=== PATIENT | female | born 1995 | race Caucasian/White ===

== ENCOUNTER 2017-11-25 20:34 | Outpatient (CLI) | payer BC, SELFPAY ==
[2017-11-25 21:15] VITALS: BMI 29.5
[2017-11-25 21:47] LABS: Mucous, Urine 0 SEEN /hpf (<or=2+)
[2017-11-25 21:50] LABS: Color, Urine Yellow (Yellow); Glucose, Dipstick Normal (Normal); Ketone-Dipstick 5 mg/dl (Negative); Leukocyte Esterase-Dipstick 100 /ul (Negative); Nitrite-Dipstick Negative (Negative); Occult Blood-Urine 10 /ul (Negative); Protein-Dipstick Negative (Negative); Specific Gravity, Urine 1.025 (1.002-1.030); Urine Bilirubin Dipstick Negative (Negative); Urine Clarity Sl. Cloudy (Clear); Urine Urobilinogen Normal (Normal)
[2017-11-25 22:19] LABS: Bacteria 1+ /hpf (None Seen); Red Blood Cells-Urine 0-5 SEEN /hpf (0-5); Squamous Epithelial Cells - UA 10-25 SEEN /hpf (5-10); White Blood Cells 5-10 SEEN /hpf (0-5)
--- NOTE | 2017-12-01 14:44 | OB.TRI.NOTE ---
History of Present Illness Reason For Visit: BACK PAIN Gestational age: 29 History of Present Illness: co low back pain unilateral, history of kidney stones Home Medications Medication Instructions Recorded 1 tab PO QDAY 10/10/17 vitamin,calcium,saxukwqu-mifr-exswz acid tablet Allergies amoxicillin Allergy (Mild, Verified 11/25/17 21:31) Hives ibuprofen Adverse Reaction (Verified 11/25/17 21:31) Rash NST - FHR Rate Baby A Baseline: 150 Variability:: Moderate Accelerations:: 10 x 10 Decelerations:: None NST Reactive:: Yes FHR Category:: Category I Uterine Activity:: no regular Impression/Plan no UTI or signs of kidney stones, no labor, back pain likely physiologic for
== END 2017-11-25 22:35 | disposition home or self-care (01) ==
LOC: WPOUT 21:14 → WP 21:15
PROVIDERS: Family Provider Family Medicine; PCP Family Medicine; Visit Provider Obstetrics & Gynecology
DX: Z34.91 Encounter for supervision of normal pregnancy, unspecified, first trimester (principal); Z3A.00 Weeks of gestation of pregnancy not specified
CPT/HCPCS: 59025; 59050; 81001; 87086; 87088; 99218; G0378

== ENCOUNTER → 2017-12-06 11:31 | Outpatient (CLI) | payer BC, SELFPAY ==
[2017-12-05 11:31] VITALS: BP 121/70; BMI 28.4
[2017-12-06 12:03] LABS: Absolute Lymphocyte Count 1.92 X10^3/ul (0.83-4.51); Absolute Neutrophil Count 7.7 X10^3/uL (2.0-7.7); Basophil# 0.01 X10^3/uL; Basophil% 0.1 % (0-1); Eosinophil# 0.07 X10^3/uL; Eosinophils% 0.7 % (0-5); Hematocrit 35.5 % (37-47); Hemoglobin 12.1 g/dl (12.0-15.0); Lymphocyte # 1.92 X10^3/ul (4.0); Lymphocyte % 18.8 % (19-41); Mean Corp Hgb Conc 34.1 g/gl (32-36); Mean Corpuscular Hgb 29.2 pg (27.0-32.0); Mean Corpuscular Volume 85.5 fL (81-99); Mean Platelet Vol. 9.7 fl (6.2-12.0); Monocyte# 0.44 X10^3/uL; Monocyte% 4.3 % (0-10); Neutrophil # 7.73 X10^3/uL (2.7-7.7); Neutrophil % 75.6 % (47-70); Platelet Count 263 K/mm3 (150-450); RBC Distribution Width CV 13.4 % (11.6-14.6); Red Blood Count 4.15 M/mm3 (4.2-5.4); White Blood Count 10.2 K/mm3 (4.4-11.0)
[2017-12-06 12:04] LABS: POSITIVE COUNT NO; POSITIVE DIFFERENTIAL NO; POSITIVE MORPHOLOGY NO
[2017-12-06 12:09] LABS: Glucose Challenge Gest 1H 50g 137 mg/dL (70-140)
== END ==
PROVIDERS: Family Provider Family Medicine; PCP Family Medicine; Visit Provider Obstetrics & Gynecology
DX: Z34.90 Encounter for supervision of normal pregnancy, unspecified, unspecified trimester (principal)
CPT/HCPCS: 36415; 82950; 85025

== ENCOUNTER → 2018-01-07 15:01 | Outpatient (CLI) | payer BC, SELFPAY ==
--- NOTE | 2018-01-07 15:03 | US_ITS ---
STUDY: SECOND AND THIRD TRIMESTER OBSTETRICAL ULTRASOUND - LIMITED REASON FOR EXAM: Female, 22 years old. Follow-up focal placental separation. LMP: 05/29/17 PRIOR ULTRASOUND: 10/18/17, 11/05/2017. TECHNIQUE: Transabdominal ultrasound evaluation was performed. FINDINGS: There is a single intrauterine fetus. The fetus is in a cephalic presentation. There is demonstrated cardiac activity with a heart rate of 147 bpm. There is a normal amniotic fluid volume. The largest amniotic fluid pocket measures 4.3 cm. The amniotic fluid index (NASRIN) is 14.3 cm. The placenta is anterior in location and is not low lying. Stable 3.8 cm area of focal placental separation. There are Grade 2 placental changes. The cervix measures 3.2 cm in length. BIOMETRY: BPD: 8.1: 32 weeks, 5 days HC: 29.4: 32 weeks, 4 days AC: 29.1: 33 weeks, 1 days FL: 6.0: 31 weeks, 3 days Age by LMP: 31 weeks, 6 days. RAFITA by LMP: 03/05/2018. age by prior US: weeks, days. RAFITA by prior US: . age by current US: 32 weeks, 4 days. RAFITA by current US: 02/28/2018. Estimated weight: 1990 grams, +/- 291 grams, 61 percentile. Gender: US/OB Limited With Biometrics IMPRESSION: Single live fetus in a vertex presentation. survey not performed on this exam. Placenta is grade 2 and is not low-lying. Stable 3.8 cm area of focal placental separation. Cervix is closed. age by current US: 32 weeks, 4 days. RAFITA by current US: 02/28/2018. Estimated weight: 1990 grams, +/- 291 grams, 61 percentile. Electronically Signed: Lui Puentes MD at 10:20 EDT , Service support ,
--- NOTE | 2018-01-17 13:30 | US_ITS ---
STUDY: SECOND AND THIRD TRIMESTER OBSTETRICAL ULTRASOUND REASON FOR EXAM: Female, 22 years old. Follow-up stomach and heart LMP: 05/29/2017 TECHNIQUE: Transabdominal PRIOR ULTRASOUND: 01/07/2018 FINDINGS: There is a single intrauterine fetus. The fetus is in a cephalic presentation. There is demonstrated cardiac activity with a heart rate of 138 bpm. There is a normal amniotic fluid volume. The placenta is anterior in location and is not low lying. Previously reported focal placental separation not imaged. There are Grade 2 placental changes. ANATOMY: Chest: Normal 4-chamber heart. Abdomen/Pelvis: Normal stomach. US/OB Limited (No Biometrics) IMPRESSION: Single live intrauterine in vertex presentation. Normal four-chamber cardiac anatomy and stomach detected. Electronically Signed: Gini Blanco MD at 8:08 EDT , Service support ,
== END ==
PROVIDERS: Family Provider Family Medicine; PCP Family Medicine; Visit Provider Obstetrics & Gynecology
DX: O45.92 Premature separation of placenta, unspecified, second trimester (principal); Z3A.00 Weeks of gestation of pregnancy not specified
CPT/HCPCS: 76816

== ENCOUNTER 2018-01-11 23:30 | Outpatient (CLI) | payer BC, SELFPAY ==
[2018-01-11 23:55] VITALS: BMI 31.7
[2018-01-12 00:12] LABS: Mucous, Urine 0 SEEN /hpf (<or=2+); Red Blood Cells-Urine 0 SEEN /hpf (0-5)
[2018-01-12 00:16] LABS: Absolute Lymphocyte Count 2.81 X10^3/ul (0.83-4.51); Absolute Neutrophil Count 9.3 X10^3/uL (2.0-7.7); Basophil# 0.01 X10^3/uL; Basophil% 0.1 % (0-1); Eosinophil# 0.12 X10^3/uL; Eosinophils% 0.9 % (0-5); Hematocrit 34.9 % (37-47); Hemoglobin 12.3 g/dl (12.0-15.0); Lymphocyte # 2.81 X10^3/ul (4.0); Lymphocyte % 21.7 % (19-41); Mean Corp Hgb Conc 35.2 g/gl (32-36); Mean Corpuscular Hgb 29.6 pg (27.0-32.0); Mean Corpuscular Volume 84.1 fL (81-99); Mean Platelet Vol. 10.8 fl (6.2-12.0); Monocyte# 0.65 X10^3/uL; Neutrophil # 9.25 X10^3/uL (2.7-7.7); Neutrophil % 71.6 % (47-70); Platelet Count 230 K/mm3 (150-450); RBC Distribution Width CV 13.1 % (11.6-14.6); RBC Distribution Width SD 39.9 fl (35.1-43.9); Red Blood Count 4.15 M/mm3 (4.2-5.4); White Blood Count 12.9 K/mm3 (4.4-11.0)
[2018-01-12 00:17] LABS: POSITIVE COUNT NO; POSITIVE DIFFERENTIAL NO; POSITIVE MORPHOLOGY NO
[2018-01-12 00:22] LABS: Color, Urine Yellow (Yellow); Glucose, Dipstick Normal (Normal); Ketone-Dipstick Negative (Negative); Leukocyte Esterase-Dipstick 100 /ul (Negative); Nitrite-Dipstick Negative (Negative); Occult Blood-Urine 10 /ul (Negative); Protein-Dipstick 30 mg/dl (Negative); Specific Gravity, Urine 1.015 (1.002-1.030); Urine Bilirubin Dipstick Negative (Negative); Urine Clarity Sl. Cloudy (Clear); Urine Urobilinogen Normal (Normal)
[2018-01-12 00:25] LABS: Fibrinogen 434 mg/dl (203-444)
[2018-01-12 00:34] LABS: Bacteria 1+ /hpf (None Seen); Squamous Epithelial Cells - UA 5-10 SEEN /hpf (5-10)
[2018-01-12 00:35] LABS: White Blood Cells 5-10 SEEN /hpf (0-5)
[2018-01-12 00:42] LABS: ROM Internal Control Test YES-OK TO RESULT pt. (Internal QC); ROM Patient Test Negative (Negative)
--- NOTE | 2018-01-12 06:45 | OB.TRI.NOTE ---
History of Present Illness Date of Service: 01/11/18 Was patient seen by the physician?: No Reason For Visit: R/O LABOR Date of Service: 01/11/18 Gestational age: 32w4d History of Present Illness: 32w4d with back pain and cramping no vb Home Medications Medication Instructions Recorded 1 tab PO QDAY 10/10/17 vitamin,calcium,gcldwjzq-nqjc-uueiv acid tablet nitrofurantoin 1 cap PO Q12H 7 Days #14 cap 01/12/18 monohydrate/macrocrystals 100 mg capsule Allergies amoxicillin Allergy (Mild, Verified 01/11/18 23:53) Hives ibuprofen Adverse Reaction (Verified 01/11/18 23:53) Rash NST - FHR Rate Baby A Baseline: 130 Variability:: Moderate Accelerations:: 15 x 15 Decelerations:: None NST Reactive:: Yes FHR Category:: Category I Uterine Activity:: no regular Impression/Plan cervix not dilated, reassruing FHTs, cbc and fibrinogen within normal limits. ua- give macrobid for possible uti and send culture. dc home labor precautions
== END 2018-01-12 01:00 | disposition home or self-care (01) ==
LOC: WPOUT 23:33 → WP 23:34
PROVIDERS: Family Provider Family Medicine; PCP Family Medicine; Visit Provider Obstetrics & Gynecology
DX: O26.893 Other specified pregnancy related conditions, third trimester (principal); M54.9 Dorsalgia, unspecified; R25.2 Cramp and spasm; Z3A.32 32 weeks gestation of pregnancy
CPT/HCPCS: 36415; 59025; 59050; 81001; 84112; 85025; 85384; 86850; 86900; 87086; 87088; 99218; G0378

== ENCOUNTER → 2018-01-15 12:34 | Outpatient (CLI) | payer BC, SELFPAY ==
[2018-01-15 13:49] LABS: Absolute Lymphocyte Count 2.01 X10^3/ul (0.83-4.51); Absolute Neutrophil Count 7.8 X10^3/uL (2.0-7.7); Basophil# 0.01 X10^3/uL; Basophil% 0.1 % (0-1); Eosinophil# 0.05 X10^3/uL; Eosinophils% 0.5 % (0-5); Hematocrit 35.6 % (37-47); Hemoglobin 11.9 g/dl (12.0-15.0); Lymphocyte # 2.01 X10^3/ul (4.0); Lymphocyte % 19.1 % (19-41); Mean Corp Hgb Conc 33.4 g/gl (32-36); Mean Corpuscular Hgb 28.5 pg (27.0-32.0); Mean Corpuscular Volume 85.2 fL (81-99); Mean Platelet Vol. 10.8 fl (6.2-12.0); Monocyte# 0.62 X10^3/uL; Monocyte% 5.9 % (0-10); Neutrophil # 7.81 X10^3/uL (2.7-7.7); Neutrophil % 73.9 % (47-70); Platelet Count 194 K/mm3 (150-450); RBC Distribution Width CV 13.5 % (11.6-14.6); RBC Distribution Width SD 41.6 fl (35.1-43.9); Red Blood Count 4.18 M/mm3 (4.2-5.4); White Blood Count 10.6 K/mm3 (4.4-11.0)
[2018-01-15 13:52] LABS: POSITIVE COUNT NO; POSITIVE DIFFERENTIAL NO; POSITIVE MORPHOLOGY NO
[2018-01-15 14:46] LABS: ALB/GLOB Ratio 0.6 RATIO (0.9-2.4); AST(SGOT) 17 U/L (15-37); Alanine Aminotransfer ALT/SGPT 23 U/L (13-56); Albumin, Serum 2.6 g/dL (3.2-5.0); Alkaline Phosphatase 153 U/L (45-117); Anion Gap 8 (5-15); BUN 14 mg/dL (7-18); BUN/Creat Ratio 26.8 RATIO (10-20); Calcium,Total 8.6 mg/dL (8.5-10.1); Chloride 108 mmol/L (98-107); Creatinine, Serum 0.52 mg/dL (0.55-1.02); EST Glomerular Filtration Rate 157 mL/min (>60); Est Glom Filt Rate - Afr Amer 189 mL/min (>60); Glucose 99 mg/dL (74-106); LDH 186 U/L (84-246); Potassium 3.8 mmol/L (3.5-5.1); Protein, Total 6.6 g/dL (6.4-8.2); Sodium Level 139 mmol/L (136-145); Uric Acid 5.8 mg/dL (2.6-6.0)
== END ==
PROVIDERS: Nurse Practitioner Women's Health; Family Provider Family Medicine; PCP Family Medicine; Visit Provider Obstetrics & Gynecology
DX: O45.92 Premature separation of placenta, unspecified, second trimester (principal); O12.10 Gestational proteinuria, unspecified trimester; Z3A.00 Weeks of gestation of pregnancy not specified
CPT/HCPCS: 36415; 80053; 83615; 84550; 85025

== ENCOUNTER → 2018-01-15 15:06 | Outpatient (CLI) | payer BC, SELFPAY ==
[2018-01-15 15:30] LABS: Protein, Urine (Random) 100.9 mg/dL (<11.9); Protein:Creat Ratio 542 mg/g CRE (0-200)
== END ==
PROVIDERS: Family Provider Family Medicine; PCP Family Medicine; Visit Provider Nurse Practitioner Women's Health
DX: O45.92 Premature separation of placenta, unspecified, second trimester (principal); O12.10 Gestational proteinuria, unspecified trimester; Z3A.00 Weeks of gestation of pregnancy not specified
CPT/HCPCS: 82570; 84156

== ENCOUNTER 2018-01-20 14:45 | Outpatient (CLI) | payer BC, SELFPAY ==
[2018-01-20 15:04] VITALS: BMI 32.2
[2018-01-20 15:43] LABS: Hematocrit 35.6 % (37-47); Hemoglobin 12.2 g/dl (12.0-15.0); Mean Corp Hgb Conc 34.3 g/gl (32-36); Mean Corpuscular Hgb 28.9 pg (27.0-32.0); Mean Corpuscular Volume 84.4 fL (81-99); Platelet Count 196 K/mm3 (150-450); RBC Distribution Width CV 13.5 % (11.6-14.6); RBC Distribution Width SD 41.1 fl (35.1-43.9); Red Blood Count 4.22 M/mm3 (4.2-5.4)
[2018-01-20 15:45] LABS: Protein, Urine (Random) 132.3 mg/dL (<11.9); Protein:Creat Ratio 1026 mg/g CRE (0-200)
[2018-01-20 15:49] LABS: International Normalized Ratio 0.9; Prothrombin Time (Protime)PT. 11.7 SECONDS (11.7-14.9)
[2018-01-20 15:50] LABS: Partial Thromboplast Time 24.2 Seconds (24.1-36.2)
[2018-01-20 15:54] LABS: AST(SGOT) 16 U/L (15-37); Alanine Aminotransfer ALT/SGPT 19 U/L (13-56); Creatinine, Serum 0.48 mg/dL (0.55-1.02); EST Glomerular Filtration Rate 171 mL/min (>60); Est Glom Filt Rate - Afr Amer 207 mL/min (>60); Estimated Creatinine Clearance 180.29 ml/min; Uric Acid 4.9 mg/dL (2.6-6.0)
[2018-01-20 16:01] LABS: Scan Indicated on CBC? Y/N NO
[2018-01-20] MEDS: Betamethasone/Betamethasone 30 MG/5 ML Vial 12 MG IM (16:15)
--- NOTE | 2018-01-21 01:59 | PCM.HP.OB ---
- Problem List (1) Preeclampsia Status: Acute History Date of Admission: 01/20/18 Final RAFITA: 03/05/18 Gestational age: 33 Weeks and 6 Days History of this : 22 yo @ 33w5d presents with new onset preeclampsia with mild features. she has had intermittent headache but none now, denies any vaginal bleeding or LOF and has good fm. bps are mildly elevated and labs show 1000mg of protein in the urine and otherwise normal [id number] Pertinent Past Medical History: Medical History History of IBS (Acute) Surgical History History of wisdom tooth extraction (Acute) Social History Smoking Status: Never smoker alcohol intake: never substance use type: does not use caffeine: Yes what type of physical activity do you participate in: walking frequency: 5-6 times per week seatbelt use: always do you feel safe at home: Yes additional social history: Boyfriend- Lane Patient works at [employer] Pregancy History 1 Elective abortions Hx Para Spontaneous abortions Hx # Term Pregnancies Ectopic pregnancies Hx # Pregnancies Multiple births # of living children Allergies amoxicillin Allergy (Mild, Verified 01/15/18 12:11) Hives ibuprofen Adverse Reaction (Verified 01/15/18 12:11) Rash Smoking Status: Never smoker Alcohol: None Drug Use: none Number of Fetus(es): 1 Review of Systems Constitutional: Denies: Chills, Fever, Weight Change HEENT: Denies: Head Aches, Sinus Congestion, Sinus Drainage Cardiovascular: Denies: Chest Pain, Palpitations Respiratory: Denies: Cough, Shortness of breath at rest, Sputum production Gastrointestinal: Denies: Abdominal Pain, Nausea, Vomiting Genitourinary: Denies: Dysuria Musculoskeletal: Denies: Joint Pain, Joint Tenderness Skin: Denies: Rash, Wounds Physical Exam General: Alert, Oriented x3, No apparent distress Cardiovascular: Regular rate Lungs: Normal air movement Abdomen: Soft, Non Tender, Gravid Extremities:: No edema Estimated gestational size: Appropriate for gestational size Presentation: Cephalic Assessment/Plan Active and Suspected Problems (Last Reviewed 01/15/18 @ 12:11 by Keren Strong) Preeclampsia (Acute) 22 yo @ 33w5d presents with preeclampsia with mild features- 1. preeclampsia- STO for monitoring bps and recommend BMZ for FLM 2. prematuirty- BMZ
--- NOTE | 2018-01-21 02:04 | HP.PCM_ITS ---
- Problem List (1) Preeclampsia Status: Acute History Date of Admission: 01/20/18 Final RAFITA: 03/05/18 Gestational age: 33 Weeks and 6 Days History of this : 22 yo @ 33w5d presents with new onset preeclampsia with mild features. she has had intermittent headache but none now, denies any vaginal bleeding or LOF and has good fm. bps are mildly elevated and labs show 1000mg of protein in the urine and otherwise normal [id number] Pertinent Past Medical History: Medical History History of IBS (Acute) Surgical History History of wisdom tooth extraction (Acute) Social History Smoking Status: Never smoker alcohol intake: never substance use type: does not use caffeine: Yes what type of physical activity do you participate in: walking frequency: 5-6 times per week seatbelt use: always do you feel safe at home: Yes additional social history: Boyfriend- Lane Patient works at [employer] Pregancy History 1 Elective abortions Hx Para Spontaneous abortions Hx # Term Pregnancies Ectopic pregnancies Hx # Pregnancies Multiple births # of living children Allergies amoxicillin Allergy (Mild, Verified 01/15/18 12:11) Hives ibuprofen Adverse Reaction (Verified 01/15/18 12:11) Rash Smoking Status: Never smoker Alcohol: None Drug Use: none Number of Fetus(es): 1 Review of Systems Constitutional: Denies: Chills, Fever, Weight Change HEENT: Denies: Head Aches, Sinus Congestion, Sinus Drainage Cardiovascular: Denies: Chest Pain, Palpitations Respiratory: Denies: Cough, Shortness of breath at rest, Sputum production Gastrointestinal: Denies: Abdominal Pain, Nausea, Vomiting Genitourinary: Denies: Dysuria Musculoskeletal: Denies: Joint Pain, Joint Tenderness Skin: Denies: Rash, Wounds Physical Exam General: Alert, Oriented x3, No apparent distress Cardiovascular: Regular rate Lungs: Normal air movement Abdomen: Soft, Non Tender, Gravid Extremities:: No edema Estimated gestational size: Appropriate for gestational size Presentation: Cephalic Assessment/Plan Active and Suspected Problems (Last Reviewed 01/15/18 @ 12:11 by Keren Strong) Preeclampsia (Acute) 22 yo @ 33w5d presents with preeclampsia with mild features- 1. preeclampsia- STO for monitoring bps and recommend BMZ for FLM 2. prematuirty- BMZ
[2018-01-21 08:14] LABS: Hematocrit 35.5 % (37-47); Mean Corp Hgb Conc 33.8 g/gl (32-36); Mean Corpuscular Hgb 28.7 pg (27.0-32.0); Mean Corpuscular Volume 84.9 fL (81-99); Mean Platelet Vol. 10.7 fl (6.2-12.0); Platelet Count 186 K/mm3 (150-450); RBC Distribution Width CV 13.6 % (11.6-14.6); RBC Distribution Width SD 41.9 fl (35.1-43.9); Red Blood Count 4.18 M/mm3 (4.2-5.4); White Blood Count 19.6 K/mm3 (4.4-11.0)
[2018-01-21 08:15] LABS: Scan Indicated on CBC? Y/N NO
[2018-01-21] MEDS: Acetaminophen 500 MG Tablet 1000 MG PO (08:21)
[2018-01-21 08:23] LABS: International Normalized Ratio 0.9; Partial Thromboplast Time 23.3 Seconds (24.1-36.2); Prothrombin Time (Protime)PT. 12.2 SECONDS (11.7-14.9)
[2018-01-21 08:26] LABS: AST(SGOT) 19 U/L (15-37); Alanine Aminotransfer ALT/SGPT 21 U/L (13-56); Creatinine, Serum 0.58 mg/dL (0.55-1.02); EST Glomerular Filtration Rate 138 mL/min (>60); Est Glom Filt Rate - Afr Amer 167 mL/min (>60); Estimated Creatinine Clearance 149.21 ml/min; Uric Acid 5.2 mg/dL (2.6-6.0)
[2018-01-21] MEDS: Betamethasone/Betamethasone 30 MG/5 ML Vial 12 MG IM (16:29)
== END 2018-01-21 16:50 | disposition home or self-care (01) ==
LOC: WPOUT 14:54 → WP 14:55
PROVIDERS: Family Provider Family Medicine; PCP Family Medicine; Visit Provider Obstetrics & Gynecology
DX: O14.93 Unspecified pre-eclampsia, third trimester (principal); Z3A.33 33 weeks gestation of pregnancy
CPT/HCPCS: 36415; 59025; 59050; 82565; 82570; 84156; 84450; 84460; 84550; 85027; 85610; 85730; 99218; G0378; J0702

== ENCOUNTER 2018-01-24 18:10 | Inpatient (IN) | payer BC, SELFPAY ==
[2018-01-24 14:30] VITALS: BMI 32.8
[2018-01-24 15:06] LABS: Hematocrit 34.5 % (37-47); Hemoglobin 11.7 g/dl (12.0-15.0); Mean Corp Hgb Conc 33.9 g/gl (32-36); Mean Corpuscular Hgb 28.8 pg (27.0-32.0); Mean Platelet Vol. 10.7 fl (6.2-12.0); Platelet Count 195 K/mm3 (150-450); RBC Distribution Width CV 13.6 % (11.6-14.6); RBC Distribution Width SD 42.1 fl (35.1-43.9); Red Blood Count 4.06 M/mm3 (4.2-5.4); Scan Indicated on CBC? Y/N NO; White Blood Count 17.3 K/mm3 (4.4-11.0)
[2018-01-24 15:07] LABS: International Normalized Ratio 0.9; Prothrombin Time (Protime)PT. 11.8 SECONDS (11.7-14.9)
[2018-01-24 15:08] LABS: Partial Thromboplast Time 22.4 Seconds (24.1-36.2)
[2018-01-24 15:49] LABS: AST(SGOT) 17 U/L (15-37); Alanine Aminotransfer ALT/SGPT 21 U/L (13-56); Creatinine, Serum 0.76 mg/dL (0.55-1.02); EST Glomerular Filtration Rate 102 mL/min (>60); Est Glom Filt Rate - Afr Amer 123 mL/min (>60); Estimated Creatinine Clearance 113.87 ml/min; Uric Acid 6.2 mg/dL (2.6-6.0)
[2018-01-24 16:48] LABS: Protein:Creat Ratio 1504 mg/g CRE (0-200)
[2018-01-24] MEDS: Labetalol 100 MG Tablet PO ×2 (17:06→20:01)
[2018-01-24] MEDS: Sodium Citrate/Citric Acid 30 ML UDC PO (17:06)
[2018-01-24] MEDS: Acetaminophen 500 MG Tablet 1000 MG PO (17:06)
--- NOTE | 2018-01-24 18:16 | PCM.HP.OB ---
- Problem List (1) Severe preeclampsia Status: Acute (2) Supervision of high risk in third trimester Status: Acute Comment: PRR RAFITA 03/05/18 girl- [place] boyfriend [address] scanlon History Date of Admission: 01/24/18 Final RAFITA: 03/05/18 Gestational age: 34 Weeks and 2 Days History of this : 22 yo @ 34w2d presents with preeclampsia with severe features- co headache and heartburn, bps elevated in the 160-180s for the last few hours. she dneies any vaginal bleeding or LOF. urine protein increased from 1095 to 1500 and her uric acid is elevated. Pertinent Past Medical History: IBS SPH: wisdom tooth extraction Allergies amoxicillin Allergy (Mild, Verified 01/24/18 13:58) Hives ibuprofen Adverse Reaction (Verified 01/24/18 13:58) Rash Current Medications Labetalol HCl (Trandate) 100 mg PO BID DES Last Admin: 01/24/18 17:06 Dose: 100 mg Smoking Status: Never smoker Alcohol: None Drug Use: none Number of Fetus(es): 1 - fht 140s moderate variability reactive no decels Review of Systems Constitutional: Denies: Chills, Fever, Weight Change HEENT: Reports: Head Aches. Denies: Sinus Congestion, Sinus Drainage Cardiovascular: Denies: Chest Pain, Palpitations Respiratory: Denies: Cough, Shortness of breath at rest, Sputum production Gastrointestinal: Reports: Abdominal Pain, Nausea. Denies: Vomiting Genitourinary: Denies: Dysuria Gynecological: Denies: Vaginal bleeding, Vaginal discharge Musculoskeletal: Denies: Joint Pain, Joint Tenderness Skin: Denies: Rash, Wounds Neurological: Denies: Numbness, Tingling, Focal weakness Psychiatric: Denies: Anxiety, Depression Hematologic/ Lymphatic: Denies: Easy Bruising, Easy Bleeding Physical Exam General: Alert, Oriented x3, No apparent distress Cardiovascular: Regular rate Lungs: Normal air movement Abdomen: Soft, Non Tender, Gravid Extremities:: Other - 2+ edema Estimated gestational size: Appropriate for gestational size Presentation: Cephalic Cervix Dilation (cm): 1.5 Station: -1 Effacement (%): 50 Assessment/Plan Active and Suspected Problems (Last Reviewed 01/24/18 @ 13:57 by Linda Adan) Severe preeclampsia (Acute) 22 yo @ 34w2d presents with preeclampsia with severe features plan pit and FB IOL severe preeclampsia- magnesium seizure prophylaxis and start hypertensive protocol
[2018-01-24] MEDS: Lactated Ringers 1,000 ML 50 ML IV (19:15)
[2018-01-24] MEDS: Magnesium Sulfate 20 GM/500 ML BAG IV (20:05)
[2018-01-24 21:57] LABS: Hematocrit 34.9 % (37-47); Hemoglobin 11.9 g/dl (12.0-15.0); Mean Corp Hgb Conc 34.1 g/gl (32-36); Mean Corpuscular Hgb 28.7 pg (27.0-32.0); Mean Corpuscular Volume 84.1 fL (81-99); Mean Platelet Vol. 10.7 fl (6.2-12.0); Platelet Count 198 K/mm3 (150-450); RBC Distribution Width CV 13.7 % (11.6-14.6); RBC Distribution Width SD 41.8 fl (35.1-43.9); Red Blood Count 4.15 M/mm3 (4.2-5.4); Scan Indicated on CBC? Y/N NO; White Blood Count 17.5 K/mm3 (4.4-11.0)
[2018-01-24] MEDS: Oxytocin 30 units/NS 500 ml 30 UNITS/500 ML IV.SOLN IV (22:39)
[2018-01-25] VITALS (7 sets, daily range): BP systolic 111–142; BP diastolic 68–90; PULSE 73–88; RESP 15–18; TEMP 36.3–37.1; O2SAT 96–98
[2018-01-25] MEDS: Magnesium Sulfate 20 GM/500 ML BAG IV ×2 (06:01→21:11)
[2018-01-25] MEDS: Labetalol 200 MG Tablet PO (06:47)
--- NOTE | 2018-01-25 07:45 | PN_ITS ---
Progress Note fht 120-130 moderate variability reactive no decels [place] q2-3 5 cm dilated arom clear fluid, bps well controlled. continue to monitor
[2018-01-25] MEDS: Acetaminophen 325 MG Tablet PO (07:49)
[2018-01-25] MEDS: Ondansetron 4 MG/2 ML Vial IV (09:31)
[2018-01-25] MEDS: fentaNYL-bupivacaine (epidural) 100 ML BAG EPIDURAL (11:24)
[2018-01-25] MEDS: Oxytocin 30 units/NS 500 ml 30 UNITS/500 ML IV.SOLN 334 UNITS IV (13:28)
--- NOTE | 2018-01-25 13:50 | PCM.OB.VAG ---
- Problem List (1) Severe preeclampsia Status: Acute (2) Supervision of high risk in third trimester Status: Acute Comment: PRR RAFITA 03/05/18 girl- [place] boyfriend Lane FOB ghislaine Vaginal Delivery Maternal Presentation: Medically Indicated Induction 22-year-old at 34 weeks 2 days presents for induction of labor secondary to severe preeclampsia Medical Reason for Induction: Preeclampsia, eclampsia Amniotic Membrane Rupture Type: Artificial Amniotic Fluid Description: Clear Final RAFITA: 03/05/18 Gestational age: 34 Weeks and 3 Days Date of Procedure: 01/25/18 Pre-Operative Diagnosis: Induction of labor secondary to severe preeclampsia Post-Operative Diagnosis: Same Surgery/ Procedure Performed: Spontaneous Vaginal Delivery Type of Anesthesia: Epidural, Pudendal block with 1% lidocaine Description of Procedure: Patient received an epidural but it was found to be inadequate and therefore she requested a pudendal block. After Betadine prepping bilateral ischial spines were identified and 10 cc of 1% lidocaine were injected 2 cm medial and posterior to the initial spine into the sacrospinous ligament around the pudendal nerves without complication. Patient began pushing and delivered the head in the HECTOR presentation. The head was delivered atraumatically . The anterior and posterior shoulders delivered without complication followed by the rest of the and the was placed on the maternal abdomen. Delayed cord clamping was employed for approximately 60 seconds. Cord was clamped and cut and gentle traction was applied to the cord and the placenta delivered spontaneously immediately following it was noted to be intact with three-vessel cord. The perineum and vagina were inspected and noted to have no laceration. EBL was 100 cc. Patient and tolerated delivery well. Presentation: HECTOR Placental Delivery Description: Spontaneous Placenta Disposition: [facility] Cord Vessel Description: 3 Vessels Cord Gases drawn per routine: ABG, VBG Cord Entanglement: None Estimated Blood Loss: 100 Episiotomy Description: None Laceration: None Medications given after delivery: IV Pitocin Complications: None
[2018-01-25] MEDS: Oxytocin 30 units/NS 500 ml 30 UNITS/500 ML IV.SOLN 167 UNITS IV (13:58)
[2018-01-26] VITALS (19 sets, daily range): BP systolic 105–146; BP diastolic 54–85; PULSE 63–84; RESP 14–17; TEMP 36.3–37.1; O2SAT 96–99
[2018-01-26 06:01] LABS: Hematocrit 35.5 % (37-47); Mean Corp Hgb Conc 33.8 g/gl (32-36); Mean Corpuscular Hgb 29.1 pg (27.0-32.0); Mean Corpuscular Volume 86.2 fL (81-99); Mean Platelet Vol. 10.7 fl (6.2-12.0); Platelet Count 176 K/mm3 (150-450); Red Blood Count 4.12 M/mm3 (4.2-5.4); White Blood Count 17.3 K/mm3 (4.4-11.0)
[2018-01-26 06:03] LABS: Scan Indicated on CBC? Y/N NO
[2018-01-26 08:18] LABS: ALB/GLOB Ratio 0.6 RATIO (0.9-2.4); AST(SGOT) 20 U/L (15-37); Alanine Aminotransfer ALT/SGPT 16 U/L (13-56); Albumin, Serum 2.3 g/dL (3.2-5.0); Alkaline Phosphatase 143 U/L (45-117); Anion Gap 8 (5-15); BUN 22 mg/dL (7-18); BUN/Creat Ratio 28.9 RATIO (10-20); Calcium,Total 6.6 mg/dL (8.5-10.1); Chloride 106 mmol/L (98-107); Creatinine, Serum 0.76 mg/dL (0.55-1.02); EST Glomerular Filtration Rate 102 mL/min (>60); Est Glom Filt Rate - Afr Amer 123 mL/min (>60); Estimated Creatinine Clearance 113.87 ml/min; Globulin 3.9 g/dL (2.2-4.2); Glucose 155 mg/dL (74-106); Potassium 4.5 mmol/L (3.5-5.1); Protein, Total 6.2 g/dL (6.4-8.2); Sodium Level 137 mmol/L (136-145)
[2018-01-26] MEDS: Acetaminophen 500 MG Tablet 1000 MG PO (08:57)
[2018-01-26] MEDS: Prenatal Vits Tablet 1 TABLET PO (13:25)
[2018-01-26] MEDS: 0.9% Saline Lock 10 ML Syringe IV (13:25)
--- NOTE | 2018-01-26 17:41 | PCM.PN.OB ---
Patient Problems: Active and Suspected Problems (Last Reviewed 01/24/18 @ 13:57 by Linda Adan) Severe preeclampsia (Acute) Subjective: no cp sob diuresing well, pain controlled, no BRAVO BV - Physical Exam General: Alert, Oriented x3 Vital Signs Temp Pulse Resp BP Pulse Ox 97.7 F L 77 14 136/67 H 97 01/26/18 16:30 01/26/18 16:30 01/26/18 16:30 01/26/18 16:30 01/26/18 16:30 Oxygen Delivery Method Room Air Weight: 209 lb 12.8 oz Body Mass Index (BMI) 32.8 Intake and Output for Last 24 Hours 01/24/18 01/25/18 01/26/18 23:59 23:59 23:59 Intake Total 100 / 100 650 / 650 1609 / 1609 Output Total 1700 / 1700 4000 / 4000 Balance 100 / 100 -1050 / -1050 -2391 / -2391 Laboratory Tests Past 24 Hrs 01/26/18 01/26/18 05:30 05:30 WBC 17.3 H RBC 4.12 L Hgb 12.0 Hct 35.5 L MCV 86.2 MCH 29.1 MCHC 33.8 RDW 14.0 RDW Differential 43.0 Plt Count 176 MPV 10.7 Sodium 137 Potassium 4.5 Chloride 106 Carbon Dioxide 23.0 Anion Gap 8 BUN 22 H Creatinine 0.76 Estim Creat Clear Calc 113.87 Est GFR (MDRD) Af Amer 123 Est GFR (MDRD) Non-Af 102 BUN/Creatinine Ratio 28.9 H Glucose 155 H Calcium 6.6 L Total Bilirubin 0.50 AST 20 ALT 16 Alkaline Phosphatase 143 H Total Protein 6.2 L Albumin 2.3 L Globulin 3.9 Albumin/Globulin Ratio 0.6 L Medical Necessity - Tobacco Use Smoking Status: Former smoker Assessment/Plan Active and Suspected Problems (Last Reviewed 01/24/18 @ 13:57 by Linda Adan) Severe preeclampsia (Acute) s/p 34 weeks secondary to severe preeclampsia routine care severe preeclampsia- magnesium for 24 hour PP and follow bps
[2018-01-27 04:00] VITALS: BP 140/78; PULSE 79; RESP 16; TEMP 37.1
[2018-01-27 07:53] VITALS: BP 135/76; PULSE 69; RESP 16; TEMP 36.3; O2SAT 98
--- NOTE | 2018-01-27 08:57 | PCM.PN.OB ---
Patient Problems: Active and Suspected Problems (Last Reviewed 01/24/18 @ 13:57 by Linda Adan) Severe preeclampsia (Acute) Subjective: Doing well BP well controlled. No headache, vision changes. Voiding well. Pumping with plans to breastfeed. Pain controlled. - Physical Exam General: Alert, Oriented x3 Abdomen: Soft, Non Tender, - - FF below U Vital Signs Temp Pulse Resp BP Pulse Ox 97.4 F L 69 16 135/76 H 98 01/27/18 07:53 01/27/18 07:53 01/27/18 07:53 01/27/18 07:53 01/27/18 07:53 Oxygen Delivery Method Room Air Weight: 209 lb 12.8 oz Body Mass Index (BMI) 32.8 Intake and Output for Last 24 Hours 01/25/18 01/26/18 01/27/18 23:59 23:59 23:59 Intake Total 650 / 650 1609 / 1609 Output Total 1700 / 1700 4000 / 4000 Balance -1050 / -1050 -2391 / -2391 Medical Necessity - Tobacco Use Smoking Status: Former smoker Assessment/Plan Active and Suspected Problems (Last Reviewed 01/24/18 @ 13:57 by Linda Adan) Severe preeclampsia (Acute) Doing well. Bp normal today. Rh positive. Plans hotel status today. Routine pp care Severe preeclampsia-no meds, discharge hotel status today. BP check in office 1 week
--- NOTE | 2018-01-27 09:02 | PCM.DCVAG ---
Discharge Diet: No Restrictions Discharge Activity: Return to Normal Activity, May not drive while taking narcotic pain medications., May Shower May resume sexual activity in: 4-6 weeks Additional Activity Instructions:: Nothing in the vagina for 4-6 weeks. You may return to work/school in 6 weeks. Call your doctor if your incision/area has: Continuous Slow Oozing, Sudden Increased Bleeding, Increased Pain/ Swelling, Increased Redness, Foul Smelling Discharge Additional Instructions: If you experience any of the following, contact your healthcare provider. Bleeding that soaks a pad every hour for 2 hours Fever 100.4 or higher Unrelieved incision or abdominal pain Swelling, redness, discharge or bleeding from your incision or episiotomy site Your incision begins to separate Problems urinating (including inability to urinate or burning while urinating). Visual changes Severe headache Flu-like symptoms Pain or redness in one of both of your breasts Pain, warmth, tenderness or swelling in your legs, especially the calf area Frequent nausea and vomiting Symptoms of depression or anxiety If you experience any of the following, call 911 or go to the nearest Emergency Room. Chest pain Problems breathing Seizure activity Partial or complete paralysis of a body part, slurred speech, weakness or drooping of the face, or a sudden inability to walk or hold your balance Allergies/Adverse Reactions: Allergies amoxicillin Allergy (Mild, Verified 01/24/18 13:58) Hives ibuprofen Adverse Reaction (Verified 01/24/18 13:58) Rash Medications to take at Discharge vitamin,calcium,uimlivih-ajcc-tpwef acid tablet 1 tab PO QDAY 10/10/17 blood pressure monitor kit See Dose Instructions .ROUTE .MEDSUPPLY #1 ea 01/21/18 Orders to be completed after discharge: Electric breast pump Location: None Selected When: Call to make an appointment with your doctor in 6 weeks. If you had elevated Blood Pressure or 4th degree laceration you will need to be seen in 2 weeks. Primary Care Physician: Ken Rodríguez MD [Primary Care Provider] -
--- NOTE | 2018-01-27 09:04 | DCINST_ITS ---
Discharge Diet: No Restrictions Discharge Activity: Return to Normal Activity, May not drive while taking narcotic pain medications., May Shower May resume sexual activity in: 4-6 weeks Additional Activity Instructions:: Nothing in the vagina for 4-6 weeks. You may return to work/school in 6 weeks. Call your doctor if your incision/area has: Continuous Slow Oozing, Sudden Increased Bleeding, Increased Pain/ Swelling, Increased Redness, Foul Smelling Discharge Additional Instructions: If you experience any of the following, contact your healthcare provider. * Bleeding that soaks a pad every hour for 2 hours * Fever 100.4 or higher * Unrelieved incision or abdominal pain * Swelling, redness, discharge or bleeding from your incision or episiotomy site * Your incision begins to separate * Problems urinating (including inability to urinate or burning while urinating) . * Visual changes * Severe headache * Flu-like symptoms * Pain or redness in one of both of your breasts * Pain, warmth, tenderness or swelling in your legs, especially the calf area * Frequent nausea and vomiting * Symptoms of depression or anxiety If you experience any of the following, call 911 or go to the nearest Emergency Room. * Chest pain * Problems breathing * Seizure activity * Partial or complete paralysis of a body part, slurred speech, weakness or drooping of the face, or a sudden inability to walk or hold your balance Allergies/Adverse Reactions: Allergies amoxicillin Allergy (Mild, Verified 01/24/18 13:58) Hives ibuprofen Adverse Reaction (Verified 01/24/18 13:58) Rash Medications to take at Discharge vitamin,calcium,gioadvhf-cbpl-xkzfd acid tablet 1 tab PO QDAY 10/10/17 blood pressure monitor kit See Dose Instructions .ROUTE .MEDSUPPLY #1 ea Orders to be completed after discharge: Electric breast pump Location: None Selected When: Call to make an appointment with your doctor in 6 weeks. If you had elevated Blood Pressure or 4th degree laceration you will need to be seen in 2 weeks. Primary Care Physician: Ken Rodríguez MD [Primary Care Provider] -
--- NOTE | 2018-01-27 12:08 | CASEMGMT ---
Social Work - Labor and Delivery Social work consulted noted for resources for this patient. Also received notice from unit secretary, who saw patient during rounding today, that patient was asking to talk to a social media executive. Chart reviewed. Noted that baby has been admitted to the [facility]. Presented to patient's room. Also present was patient's mother. Patient made comment that thought this senior writer was nutrition services, as patient and patient's mother are waiting on celebration meal. This senior writer introduced to self and role, and suggested this senior writer come back later so that patient can enjoy meal with her family. Patient agreed. Patient did comment that would like information on DNA testing, not because of uncertainty with paternity, but due to wanting to get child support started. tea tree farm worker agreed to bring some resources back when visits next. Patient agreeable. Noted that patient is slated for discharge herself, but as the is admitted to [facility] and not ready for discharge, MOB will still be in the hospital with baby until baby's discharge. Did educate patient that this senior writer provides social work to the [facility], so will be following patient and during that hospitalization as well. Plan: Social work to follow. Will plan to meet with patient again later today, or tomorrow 01-28-18. -KWAN Steele, DUST COLLECTOR TREATER
[2018-01-27 13:23] VITALS: BP 137/71; PULSE 84; RESP 20; TEMP 36.4; O2SAT 98
[2018-01-27 13:27] VITALS: BP 137/71; PULSE 84; RESP 20; TEMP 36.3; O2SAT 98
--- NOTE | 2018-01-27 13:28 | NURSING ---
baby in [facility] birthcertificate being completed, mother to hotel status and to room 1
[2018-01-27] MEDS: Prenatal Vits Tablet 1 TABLET PO (13:37)
--- NOTE | 2018-01-28 11:15 | CASEMGMT ---
Social Work Note - Labor and Delivery Unit Social Work Assessment completed. Refer to documentation below for further details. Date of Referral: 01/26/2018 Time of Referral: 27 Referred By: Dr. Kerr Reason for Referral: resources Date of Intervention: 01/28/2018 Time of Intervention: 1115 History obtained from: Medical record and patient/mother of baby (MOB) Household composition: MOB, MOBs mother Tegan, MOBs older sister Tila (age 22), Coras 2 children ages 4 and 1, and then MOBs 16 year old sister. MOB plans to take , Shanel Easton to this home. MOB reports home situation is safe and adequate. Patient's parent/guardian status: MOB and reported father of baby (FOB) Stacy Easton are not currently together, though FOB does reportedly intend to be involved with . MOB reports was with FOB for about 6 months, while FOB was in [place] working on the [employer]. MOB reports upon telling FOB of the , FOB disclosed to MOB that FOGuy was actually and has another child. MOB reports RYAN normally lives in [place]. MOB reports that FOB and FOBs Marlene are working on their marriage at this time, but that both RYAN and Marlene are accepting of the , wanting to play a part in [facility] life. RYAN has one other child, Gabriel, who is 2 years old. MOB reports current involvement with a man named Lane Kasper. MOB has been involved with Lane since MOB was 16 weeks . MOB reports Lane is supportive. Medical History: MOB is G1, P0 to 1 after delivering infant. MOB reports medical history of IBS. Chart indicates MOB with some preeclampsia. MOB delivered baby at 34.4 weeks gestation, requiring baby to be transferred to [facility] for care and treatment. was born weighing 4 pounds 8 ounces. Apgars 7-9-9 at 1-5-10 minutes of life respectively. Educational Status: MOB graduated high school, attending the [employer]. 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 MOB denies any issues with reading, writing, or learning comprehension. Financial Status: MOB works fulltime at [employer] on 2nd shift. Infant Supplies: MOB reports to have needed baby supplies including car seat, crib, bottles, clothing, diapers, wipes, and getting a breast pump. MOB reports will be having a baby shower on the 09 of February, so will be getting more things at that time. Childcare/Caregiver(s): MOB plans to be primary caregiver. MOB has a supervisor coremaker, Yesenia Weiss, lined up to babysit when MOB returns to work. Transportation: No reported issues. Programs/Agencies Involved: MOB has no agency involvement at this time, but reports interest in WIC and verbally agrees to [facility] referral. MOB has interest in establishing paternity for child support reasons. Children Services/Legal Issues: No children services involvement. MOB denies current legal charges, but admits to history of assault charges when MOB was 19. MOB reports she and a friend were joking around fighting but both ended up getting charged with assault. MOB reports all fines, probation, etc. are done and over with. MOB reports did have an underage possession charge (holding an unopened can of beer) last year. MOB denies any issues in remaining things to do for this charge. Behavioral Health Issues: MOB reports has had some anxiety in the past, though denies this has been to the point of interfering with MOBs daily life. MOB denies depression, reports to be pretty happy overall. MOB denies any history of suicide attempt, thoughts, plans, or intent; denies thoughts of harm to others. MOB report as a teen went to family counseling during MOBs mothers and stepfathers divorce. MOB reports has drank alcohol socially, but denies use in , and denies that anyone has ever told MOB that should cut down on drinking. MOB reports history of marijuana usage, and admits to usage this to help with nausea. MOB reports mostly used the oils. MOB reports to this advertising copywriter that last usage was in September or October, but chart indicates MOBs last reported use was about a month and a half ago. MOB denies any other illicit drug use history. MOB reports a family history (biological father) with heroin and crack addiction, but denies any use for self. MOB reports quit smoking cigarettes when found out . Family/Social Stressors: MOB is a single mother, finding out the FOB had another family after MOB found out about . MOB is reporting however, to be on good terms with FOB and FOBs . MOB does reports that when FOB drinks that FOB stays things that are stressful, such as Kynder will still come to visit and stay with Marlene in [place], even when FOB is on the road. MOBs grandmother had lung cancer during MOBs , and last week. MOB reports the [place] -is this weekend, on Saturday02-01-18. MOB reports to feel at peace with the , due to the grandmother no longer suffering. Support Systems: MOB reports great support from MOBs mother, sisters, and new boyfriend. MOB anticipates FOB to provide support. MOB reports to have a great best friend who is helpful to MOB as well. Depression/Shaken Baby/Safe Sleeping: MOB educated to depression and anxiety, risk factors present, and importance of seeking out and accepting help should symptoms arise. Educated to shaken baby and safety sleeping. MOB able to give appropriate responses to both topics. MOB reports to be anti co-sleeping as MOB has a friend from high school, who just last week, rolled over own baby due to being intoxicated and not waking up. ASSESSMENT: MOB pleasant, cooperative, friendly during social work visit. MOB answered all questions, nondefensive, and at times appearing to want to talk as evidenced by MOB sharing about stressor relating to FOBs expressed intentions about future visitation with the baby. Emotional support provided to MOB, and educated MOB to some rights as a single mother in the [facility]. MOB reports to have adequate supplies and support at home going. MOB is interested in community resources and agrees to a [facility] referral. MOB does admit to marijuana usage during this , with discrepancy in last use reported to this advertising copywriter and what is in the chart. MOB does report intent not to use further. MOB listened to education about potential consequences of continued use while caring for a baby. MOB reports to feel a connection to baby, to love baby, and excited to have this child. *note, MOB educated that information from this assessment would be used in MOB's record at [facility] and also in the baby's chart through the [facility]* PLAN: MOB is discharged. Baby remains in the [facility], so social work will follow for the remainder of that stay. Appropriate referrals will be made upon the babys discharged from [facility]. MOB has been given [facility] resource lists, [facility] information, [facility] information, and information on paternity testing. [facility] referral is being made. Otherwise, no other social work services requested or indicted from [facility] social work standpoint. -RONIT Steele, SCAFFOLD ERECTOR
== END 2018-01-27 13:30 | disposition home or self-care (01) | DRG 775 ==
LOC: WP 01-25 13:31 → WPOUT 01-28 08:49
PROVIDERS: Admitting Provider Obstetrics & Gynecology; Family Provider Family Medicine; PCP Family Medicine; Visit Provider Obstetrics & Gynecology
DX: O14.14 Severe pre-eclampsia complicating childbirth (principal); Z87.891 Personal history of nicotine dependence; Z3A.34 34 weeks gestation of pregnancy; Z37.0 Single live birth
CPT/HCPCS: 36415; 59025; 59050; 80053; 82565; 82570; 84156; 84450; 84460; 84550; 85027; 85610; 85730; 86850; 86900; 99218; J7050; J7120; A4216; G0378; J2405

== ENCOUNTER 2021-05-25 08:46 | Emergency (ER) | payer BC, MEDICAID, SELFPAY ==
[2019-07-22 13:00] VITALS: BMI 28.4
[2021-05-25 08:47] VITALS: BP 115/74; PULSE 103; RESP 16; TEMP 36.4; O2SAT 100; BMI 22.1
--- NOTE | 2021-05-25 09:13 | US_ITS ---
STUDY: FIRST TRIMESTER OBSTETRICAL ULTRASOUND REASON FOR EXAM: Female, 25 years old bleeding x3 days LMP: Unknown. TECHNIQUE: Transvaginal TECHNICAL QUALITY: Adequate. PRIOR ULTRASOUND: No recent studies FINDINGS: There is visualization of a single gestational sac in a normal intrauterine position. The mean sac diameter (MSD) measures 0.96 cm, indicating an estimated gestational age (EGA) of 5 weeks, 4 days. The gestational sac shape is within normal limits. There is a visualized yolk sac. The yolk sac measures 0.2 cm. The placenta is non-visualized. There is no demonstrated embryo ( pole). The uterus measures 7.8 x 5.2 x 5.2 cm. There is no demonstrated uterine fibroid. The cervix is closed. The right ovary measures 3.9 x 2.8 x 2.8 cm. There is no right ovarian cyst. There is no visualized right adnexal mass or complex lesion. The left ovary measures 2.6 x 2.3 x 1.2 cm. There is no left ovarian cyst. There is no visualized left adnexal mass or complex lesion. There is no fluid in the cul de sac. There may be a small subchorionic hemorrhage noted, seen best in the cine clips. Short-term follow-up recommended to show resolution US/Transvaginal w/Preg US IMPRESSION: Normal appearing intrauterine stational sac. There is also a normal appearing yolk sac. No pole or heartbeat yet identified. Gestational sac measures 5 weeks 4 days so it is likely too early to determine viability. Recommend short-term follow-up ultrasound, 3-5 days, along with serial beta hCG studies to determine viability. No suspicious adnexal mass or free fluid to suspect ectopic Possible small subchorionic hemorrhage, noted on cine clips. Short-term follow-up recommended to assure resolution Electronically Signed: Josh Joe MD at 11:49 EDT , Service support ,
--- NOTE | 2021-05-25 09:14 | EDS_ITS ---
HPI HPI - Female History of Present Illness Chief Complaint: Vag Bld, Preg Informant: patient Pain Pain: Positive for Pelvic Pain Onset: Days Context: Gradual Onset Timing: Waxes and wanes Quality: Positive for Cramping Location: Suprapubic Current Severity: Mild Maximum Severity: Moderate Bleeding Issue: Positive for Vaginal bleeding and Passing clots Onset: Days Context: Gradual Onset Timing: Waxes and wanes Current Severity: Mild Associated Symptoms Test: Positive P: 1 Ab: 2 PFSH PFSH Medical History (Updated 05/25/21 @ 11:[address] Elvie Valiente MD) History of IBS Home Medications citalopram 20 mg tablet 20 mg PO QDAY #30 tab 03/28/18 [Rx Last Taken Unknown] desogestrel 0.15 mg-ethinyl estradiol 0.03 mg tablet 1 tab PO QDAY #28 tab 03/28/18 [Rx Last Taken Unknown] buspirone 7.5 mg tablet 7.5 mg PO BID #60 tab 04/16/18 [Rx Last Taken Unknown] Allergy/AdvReac Type Severity Reaction Status Date / Time amoxicillin Allergy Mild Hives Verified 05/25/21 08:46 ibuprofen AdvReac Rash Verified 05/25/21 08:46 Surgical History History of wisdom tooth extraction Social History Smoking Status: Current every day smoker tobacco type: cigarettes alcohol intake: never substance use type: does not use caffeine: Yes what type of physical activity do you participate in: walking frequency: 5-6 times per week seatbelt use: always do you feel safe at home: Yes additional social history: Boyfriend- Lane Patient works at [employer] ED Constitutional Constitutional ED: Denies chills or fever(s) Eyes Eyes: Denies change in vision Cardiovascular Cardiovascular: Denies chest pain Respiratory/Chest Respiratory/Chest: Denies cough or dyspnea Gastrointestinal Gastrointestinal: Reports abdominal pain; Denies diarrhea, nausea or vomiting Genitourinary Genitourinary ED: Denies dysuria Musculoskeletal Musculoskeletal: Denies back pain Integumentary Denies rash Neurologic Neurologic: Denies headache(s) or weakness Psychiatric Psychiatric: Denies anxiety or depression Endocrine Endocrinology: Denies polydipsia or polyuria Allergic/Immunologic Allergic/Immunologic ED: Denies urticaria EXAM Physical Exam Const Vital Signs: 05/25/21 08:47 05/25/21 11:29 Temperature 97.6 F L Temperature Source Temporal Pulse Rate 103 H 72 Respiratory Rate 16 16 Blood Pressure 115/74 112/68 Blood Pressure Mean 87 Pulse Ox 100 97 Oxygen Delivery Method Room Air Positive well nourished and well developed General Appearance ED: well developed HEENT Reports normocephalic and head/scalp atraumatic Eyes PERRL and EOMs intact bilaterally Neck supple Chest Wall inspection of chest normal and palpation of chest normal Resp normal respiratory effort and clear to auscultation bilaterally Cardio regular rate and regular rhythm GI normal to inspection, nondistended, normoactive bowel sounds and soft to palpation Palpation: soft and tender suprapubic (Mild suprapubic tenderness to palpation. No guarding or rebound.) Extremity normal to inspection Neuro oriented x3 and no sensory deficits noted Sensorium / Orientation: alert Motor Exam: strength 5/5 throughout Psych mental status grossly normal Skin no rashes or lesions noted MDM MDM MDM Narrative Medical decision making narrative: Patient's blood type is noted to be a be positive. Quant and pelvic ultrasound are obtained. Lab Data Attestation: I reviewed the patient's lab results. Labs: Laboratory Results - last 24 hr 05/25/21 09:30 HCG, Quant [id number] H Radiography Diagnostic Testing: Radiology Impression Obstetrics Ultrasound 05/25/21 09:13 IMPRESSION: Normal appearing intrauterine stational sac. There is also a normal appearing yolk sac. No pole or heartbeat yet identified. Gestational sac measures 5 weeks 4 days so it is likely too early to determine viability. Recommend short-term follow-up ultrasound, 3-5 days, along with serial beta hCG studies to determine viability. No suspicious adnexal mass or free fluid to suspect ectopic Possible small subchorionic hemorrhage, noted on cine clips. Short-term follow-up recommended to assure resolution Electronically Signed: Josh Joe MD at 11:49 EDT , Service support , Treatment and Re-Evaluation Comments:: Patient wanted to leave prior to the official report from the ultrasound. I did review the images myself. There was evidence of a gestational and yolk sac but no pole noted. Gestational sac was measuring at 5-1/2 weeks. Patient's quant does correlate to this timeframe. She may not be as far along as she believes she is. I did write her for a repeat quant to be performed in 48 hours. She will follow Dr. Kerr whom she has seen in the past. She is given return instructions. Discharge Plan Triage Chief Complaint: Vag Bld, Preg ED Provider: Elvie Valiente Dx/Rx/DC Orders Clinical Impression: Miscarriage, threatened, early Instructions: ED Possible Miscarriage ... Prescriptions: No Action desogestrel-ethinyl estradiol [Apri] 0.15-0.03 mg tablet 1 tab PO QDAY Qty: 28 RF: 12 citalopram [Celexa] 20 mg tablet 20 mg PO QDAY Qty: 30 RF: 12 buspirone 7.5 mg tablet 7.5 mg PO BID Qty: 60 RF: 12 Primary Care Provider: Ken Rodríguez Referrals: Ken Rodríguez MD [Primary Care Provider] - Nely Kerr MD [STAFF PHYSICIAN] - As soon as possible Disposition Disposition: Home, Self Care Discharge Date/Time: 05/25/21 11:30
[2021-05-25 10:36] LABS: hCG Titer Quant., Serum 6463 mIU/mL (1-3)
[2021-05-25 11:29] VITALS: BP 112/68; PULSE 72; RESP 16; O2SAT 97
== END 2021-05-25 11:30 | disposition home or self-care (01) ==
PROVIDERS: Emergency Provider Emergency Medicine; PCP Family Medicine
DX: O20.0 Threatened abortion (principal); O99.331 Smoking (tobacco) complicating pregnancy, first trimester; F17.210 Nicotine dependence, cigarettes, uncomplicated; Z3A.01 Less than 8 weeks gestation of pregnancy
CPT/HCPCS: 36415; 76817; 84702; 99282

== ENCOUNTER 2023-03-06 12:01 | Emergency (ER) | payer MEDICAID, SELFPAY ==
[2023-03-06 12:01] VITALS: BP 109/85; PULSE 101; RESP 18; TEMP 36.4; O2SAT 100; BMI 25.6
--- NOTE | 2023-03-06 12:19 | CT_ITS ---
STUDY: CT ABDOMEN AND PELVIS WITH CONTRAST REASON FOR EXAM: Female, 27 years old. Right flank pain RADIATION DOSAGE (If Supplied By Facility): CTDIvol = ( 8.28 ) mGy, DLP = ( 360.68 ) mGycm TECHNIQUE: Transaxial images were obtained from the dome of the diaphragm to the symphysis pubis without oral contrast. IV 100mL Isovue-300 was administered. Sagittal and coronal images were reconstructed. Individualized dose optimization techniques were used for this CT. COMPARISON: None. FINDINGS: The visualized lung bases are unremarkable. The visualized portions of the heart are within normal limits. Normal liver. Normal gallbladder and extrahepatic biliary system. Normal spleen. Normal pancreas. Normal bilateral adrenal glands. There is a 2.2 cm x 2.4 cm x 3.1 cm rounded hypodensity in the medial posterior midportion of the right kidney. This may represent a focal area of the pyelonephritis although a mass lesion cannot be excluded. Correlation with ultrasound is recommended. Normal left kidney. Normal visualized stomach. Normal small intestine. Normal colon. The appendix is visualized and appears normal. Normal abdominal aorta. Normal inferior vena cava. Normal retroperitoneum. Normal urinary bladder. Follicles are seen in both ovaries. Normal abdominal wall. Normal osseous structures. CT/Abdomen/Pelvis W IV Cont ONLY IMPRESSION: 2.2 cm x 2.4 cm x 3.1 cm rounded hypodensity in the medial posterior midportion of the right kidney. This may represent a focal area of focal pyelonephritis although an underlying mass lesion cannot be excluded. Correlation with ultrasound is recommended. Electronically Signed: Jose Crow MD at 13:07 EDT ,
--- NOTE | 2023-03-06 12:20 | ED.VIS.GI ---
HPI HPI - GI History of Present Illness Chief Complaint: Abd Pain Detail of Chief Complaint: Flank pain since Saturday. Informant: patient Abdominal Pain/Flank Pain Onset: Days Context: Sudden Onset Timing: Continuous Quality: Aching Location: Right Flank Current Severity: Mild Maximum Severity: Mild Worsened by: Nothing Relieved by: Nothing Nausea/Vomiting/Emesis GI Symptom: Negative for Nausea or Vomiting Diarrhea/Melena/Hematochezia GI Symptom: Negative for Diarrhea, Melena or Hematochezia Associated Symptoms Associated Symptoms: Negative for Dysuria, Frequency, Hematuria or Urgency Narrative Narrative: 27-year-old female history of irritable bowel. No prior abdominal surgeries. States Saturday she had relatively sudden onset right flank pain. Initially she thought it was from pulling a muscle because she was lifting and carrying things. However she states she had a fever as high as 1026. Denies any dysuria. No shortness of breath or cough. No diarrhea. Denies any prior history. Prior similar symptoms: No Recent Illness/Hospitalization: No [facility] Medical History (Updated 03/06/23 @ 14:[address] Robert Pitt MD) History of IBS Home Medications citalopram 20 mg tablet (Celexa) 20 mg PO QDAY #30 tabs 03/28/18 [Rx Last Taken Unknown] desogestrel 0.15 mg-ethinyl estradiol 0.03 mg tablet (Apri) 1 tab PO QDAY #28 tabs 03/28/18 [Rx Last Taken Unknown] buspirone 7.5 mg tablet 7.5 mg PO BID #60 tabs 04/16/18 [Rx Last Taken Unknown] Allergy/AdvReac Type Severity Reaction Status Date / Time amoxicillin Allergy Mild Hives Verified 03/06/23 12:03 Penicillins Allergy Hives Verified 03/06/23 12:03 ibuprofen AdvReac Rash Verified 03/06/23 12:03 Surgical History History of wisdom tooth extraction Social History Smoking Status: Current every day smoker tobacco type: cigarettes alcohol intake: never substance use type: does not use caffeine: Yes what type of physical activity do you participate in: walking frequency: 5-6 times per week seatbelt use: always do you feel safe at home: Yes additional social history: Boyfriend- Lane Patient works at [employer] ROS ED ROS Narrative Right flank pain. Reported fever. Review of Systems ROS Unobtainable: Denies due to encephalopathy Constitutional Constitutional ED: Reports fever(s); Denies chills ENT ENT ED: Denies ear pain Cardiovascular Cardiovascular: Denies chest pain Respiratory/Chest Respiratory/Chest: Denies cough or dyspnea Gastrointestinal Gastrointestinal: Reports abdominal pain; Denies constipation, diarrhea, melena, nausea or vomiting Genitourinary Genitourinary ED: Denies dysuria or hematuria Musculoskeletal Musculoskeletal: Denies arthralgias or back pain Integumentary Denies abscess Neurologic Neurologic: Denies headache(s) Psychiatric Psychiatric: Denies anxiety Endocrine Endocrinology: Denies polydipsia Hematologic/Lymphatic Hematologic/Lymphatic: Denies easy bleeding Allergic/Immunologic Allergic/Immunologic ED: Denies mouth swelling or tongue swelling EXAM Physical Exam Narrative Exam Narrative: 27-year-old female vital signs stable afebrile. Temperature is 97.5. She states she took no antipyretics prior to arrival. She does not look septic or toxic in any distress. H EENT exam unremarkable. Neck nontender no lymphadenopathy. Lungs clear to auscultation bilaterally. Heart regular rhythm rate about 100 no murmur. Abdomen soft nondistended normal bowel sounds no peritoneal signs. Right lateral flank pain. No ecchymosis or bruising. No redness or warmth. No CVA tenderness. Back nontender. Moving all 4 extremities. Multiple tattoos. Nontender no edema. Neurologically she is awake alert with no focal motor deficits. Const Vital Signs: 03/06/23 12:01 03/06/23 14:14 Temperature 97.5 F L Temperature Source Temporal Pulse Rate 101 H Respiratory Rate 18 16 Blood Pressure 109/85 H Blood Pressure Mean 93 Pulse Ox 100 Oxygen Delivery Method Room Air Positive well nourished and well developed; Negative for obese, cachectic, contractures or unkempt General Appearance ED: well developed and NAD; Negative for unkempt, cachectic, contractures or pallor Nutritional Appearance: Negative for cachectic or obese HEENT Reports moist mucous membranes normocephalic and atraumatic; Negative for trauma or tenderness Eyes PERRL and EOMs intact bilaterally General Eye ED: Negative for pale conjunctiva, scleral icterus or other Neck no lymphadenopathy, supple and no JVD General: Negative for tenderness Carotids: Negative for other Lymph Lymphatic: Negative for other Resp normal respiratory effort Effort and Inspection: Negative for respiratory distress Auscultation: Negative for rales, rhonchi or wheezes Cardio regular rate, regular rhythm, S1 normal heart sound, S2 normal heart sound and no murmurs Rate: Negative for bradycardia or tachycardic Rhythm: Negative for abnormal rhythm GI non-tender, non-distended and no masses GI Narrative: Mild right flank tenderness. No McBurney's point tenderness. No Mccain sign tenderness. No CVA tenderness. Inspection: Negative for abdominal distention Auscultation: normoactive bowel sounds Palpation: soft and tender Back/Spine no CVA tenderness General Back: Negative for CVA tenderness Cervical Spine: Negative for cervical spine tenderness Thoracic Spine / Upper Back: Negative for thoracic spinal tenderness Lumbar Spine / Lower Back: Negative for lumbar spinal tenderness Extremity full ROM General Extremety ED: Negative for edema or tenderness General Extremity: Negative for edema Neuro CN's II-XII intact bilaterally and moves all extremities Sensorium / Orientation: oriented to person, oriented to place and oriented to time; Negative for orientation impaired, confused, lethargic or stuporous Motor Exam: strength 5/5 throughout Psych mental status grossly normal and thought process normal Appearance: Negative for unkempt Attitude: No agitated Mood & Affect: Negative for depressed, anxious or tearful Skin no wounds General Skin Exam: Negative for jaundice or pallor Lesions: no lesions Rashes: no rashes Trauma: Negative for abrasion Nails: Negative for discolored MDM MDM MDM Narrative Medical decision making narrative: 27-year-old right flank pain. Reported fever at home but no fever here no antipyretics at home. She was offered but did not want a thing for pain. Differential would include UTI, kidney stone versus clinically I do not think this is her gallbladder as she has no right upper quadrant pain. Clinically I do not think this is her appendix and she has no McBurney's point tenderness pain. It may be musculoskeletal but that should not cause her to have a fever at home. CAT scan and labs are pending. She did not want anything for pain nor is she having any nausea. Repeat exam patient doing well at 2:30 PM. Exam benign. She and I went over all of her test results. We do not have a specific cause of her pain. It could be musculoskeletal. I discussed with her the CAT scan finding of her right kidney and she can follow-up and get outpatient ultrasound. She will use Tylenol Motrin for pain. Follow-up with her primary care physician in [facility]. History & Record Review Discussion w/independent historian: Patient Lab Data Attestation: I reviewed the patient's lab results. Lab results narrative: CBC normal. White count of 7.6. H&H 12.8 and 37. Platelets 245. Electrolytes unremarkable gap is 6 normal BUN and creatinine of 7 and 0.5. Liver enzymes unremarkable other than AST of 153 ALT of 457 and alk phos of 237. Lipase is normal at 51. Serum test negative. Urinalysis negative. No white cells nor nitrates. Labs: Laboratory Results - last 24 hr 03/06/23 03/06/23 03/06/23 12:23 12:23 12:23 WBC 7.6 RBC 4.50 Hgb 12.8 Hct 37.8 MCV 84.0 MCH 28.4 MCHC 33.9 RDW Std Deviation 38.2 RDW Coeff of Raimundo 12.6 Plt Count 245 MPV 9.1 Immature Gran % (Auto) 0.300 Neut % (Auto) 71.6 H Lymph % (Auto) 18.5 L Harvey % (Auto) 9.1 Eos % (Auto) 0.4 Baso % (Auto) 0.1 Absolute Neuts (auto) 5.4 Absolute Lymphs (auto) 1.40 Nucleated RBC % 0 Sodium 136 Potassium 3.8 Chloride 105 Carbon Dioxide 25.0 Anion Gap 6 BUN 7 Creatinine 0.56 Estim Creat Clear Calc 142.51 Est GFR (MDRD) Af Amer 167 Est GFR (MDRD) Non-Af 138 BUN/Creatinine Ratio 12.5 Glucose 103 Calcium 8.4 L Total Bilirubin 0.60 AST 153 H ALT 457 H Alkaline Phosphatase 237 H Total Protein 7.0 Albumin 3.0 L Globulin 4.0 Albumin/Globulin Ratio 0.8 L Lipase 51 Serum , Qual NEGATIVE Urine Color Urine Clarity Urine pH Ur Specific Stow Urine Protein Urine Glucose (UA) Urine Ketones Urine Occult Blood Urine Nitrite Urine Bilirubin Urine Urobilinogen Ur Leukocyte Esterase Urine RBC Urine WBC Ur Squamous Epith Cells Urine Bacteria Urine Mucus 03/06/23 13:26 WBC RBC Hgb Hct MCV MCH MCHC RDW Std Deviation RDW Coeff of Raimundo Plt Count MPV Immature Gran % (Auto) Neut % (Auto) Lymph % (Auto) Harvey % (Auto) Eos % (Auto) Baso % (Auto) Absolute Neuts (auto) Absolute Lymphs (auto) Nucleated RBC % Sodium Potassium Chloride Carbon Dioxide Anion Gap BUN Creatinine Estim Creat Clear Calc Est GFR (MDRD) Af Amer Est GFR (MDRD) Non-Af BUN/Creatinine Ratio Glucose Calcium Total Bilirubin AST ALT Alkaline Phosphatase Total Protein Albumin Globulin Albumin/Globulin Ratio Lipase Serum , Qual Urine Color Yellow Urine Clarity Clear Urine pH 7.0 Ur Specific Stow 1.005 Urine Protein 15 H Urine Glucose (UA) Normal Urine Ketones Negative Urine Occult Blood 25 H Urine Nitrite Negative Urine Bilirubin Negative Urine Urobilinogen Normal Ur Leukocyte Esterase Negative Urine RBC 0-5 SEEN Urine WBC 0 SEEN Ur Squamous Epith Cells 0-5 SEEN Urine Bacteria 1+ Urine Mucus 0 SEEN Radiography Diagnostic Testing: Clinical Impression(s) from Imaging Studies Abdomen/Pelvis CT 03/06/23 12:19 IMPRESSION: 2.2 cm x 2.4 cm x 3.1 cm rounded hypodensity in the medial posterior midportion of the right kidney. This may represent a focal area of focal pyelonephritis although an underlying mass lesion cannot be excluded. Correlation with ultrasound is recommended. Electronically Signed: Jose Crow MD at 13:07 EDT , Discharge Plan Triage Chief Complaint: Abd Pain ED Provider: Robert Pitt Dx/Rx/DC Orders Clinical Impression: Acute right flank pain Instructions: ED Flank Pain, Uncertain Cause Prescriptions: No Action desogestrel-ethinyl estradiol [Apri] 0.15-0.03 mg tablet 1 tab PO QDAY Qty: 28 12RF citalopram [Celexa] 20 mg tablet 20 mg PO QDAY Qty: 30 12RF buspirone 7.5 mg tablet 7.5 mg PO BID Qty: 60 12RF Primary Care Provider: Ken Rodríguez Referrals: Ken Rodríguez MD [Primary Care Provider] - 1 Week Activity Restrictions/Additional Instructions: You have right flank pain we do not have a specific cause. There is no kidney stone or any kidney infection. Motrin and Tylenol for pain. On the CAT scan they saw an abnormality of your right kidney they are really not sure what it is. It is most likely nothing bad. To clarify what they saw you should follow-up with your doctor and get an outpatient ultrasound of your right kidney. Disposition Disposition: Home, Self Care
[2023-03-06 12:43] LABS: Absolute Neutrophil Count 5.4 X10^3/uL (2.0-7.7); Basophil# 0.01 X10^3/uL; Basophil% 0.1 % (0-1); Eosinophil# 0.03 X10^3/uL; Eosinophils% 0.4 % (0-5); Hematocrit 37.8 % (37-47); Hemoglobin 12.8 g/dL (12.0-15.0); Lymphocyte % 18.5 % (19-41); Mean Corp Hgb Conc 33.9 g/dL (32-36); Mean Corpuscular Hgb 28.4 pg (27.0-32.0); Mean Platelet Vol. 9.1 fl (6.2-12.0); Monocyte# 0.69 X10^3/uL; Monocyte% 9.1 % (0-10); NRBC Flagged by Analyzer 0 % (0-5); Neutrophil # 5.42 X10^3/uL (2.7-7.7); Neutrophil % 71.6 % (47-70); Platelet Count 245 K/mm3 (150-450); RBC Distribution Width CV 12.6 % (11.6-14.6); RBC Distribution Width SD 38.2 fl (35.1-43.9); White Blood Count 7.6 K/mm3 (4.4-11.0)
[2023-03-06 12:47] LABS: Internal QC Validated? YES +Cl - CLEAR BKGD; Pregnancy, Serum, hCG Quali. NEGATIVE Negative
[2023-03-06 12:49] LABS: ALB/GLOB Ratio 0.8 RATIO (0.9-2.4); AST(SGOT) 153 U/L (15-37); Alanine Aminotransfer ALT/SGPT 457 U/L (13-56); Alkaline Phosphatase 237 U/L (45-117); Anion Gap 6 (5-15); BUN 7 mg/dL (7-18); BUN/Creat Ratio 12.5 RATIO (10-20); Calcium,Total 8.4 mg/dL (8.5-10.1); Chloride 105 mmol/L (98-107); Creatinine, Serum 0.56 mg/dL (0.55-1.02); EST Glomerular Filtration Rate 138 mL/min (>60); Est Glom Filt Rate - Afr Amer 167 mL/min (>60); Estimated Creatinine Clearance 142.51 ml/min; Glucose 103 mg/dL (74-106); Lipase 51 U/L (13-75); Potassium 3.8 mmol/L (3.5-5.1); Sodium Level 136 mmol/L (136-145)
[2023-03-06 13:31] LABS: Mucous, Urine 0 SEEN /hpf (<or=2+); White Blood Cells 0 SEEN /hpf (0-5)
[2023-03-06 13:43] LABS: Color, Urine Yellow (Yellow); Glucose, Dipstick Normal (Normal); Ketone-Dipstick Negative (Negative); Leukocyte Esterase-Dipstick Negative /ul (Negative); Nitrite-Dipstick Negative (Negative); Occult Blood-Urine 25 /ul (Negative); Protein-Dipstick 15 mg/dl (Negative); Specific Gravity, Urine 1.005 (1.002-1.030); Urine Bilirubin Dipstick Negative (Negative); Urine Clarity Clear (Clear); Urine Urobilinogen Normal (Normal)
[2023-03-06 14:01] LABS: Red Blood Cells-Urine 0-5 SEEN /hpf (0-5); Squamous Epithelial Cells - UA 0-5 SEEN /hpf (5-10)
[2023-03-06 14:02] LABS: Bacteria 1+ /hpf (None Seen)
[2023-03-06 14:14] VITALS: RESP 16
== END 2023-03-06 14:47 | disposition home or self-care (01) ==
PROVIDERS: Emergency Provider Emergency Medicine; PCP Family Medicine; Visit Provider Emergency Medicine
DX: R10.9 Unspecified abdominal pain (principal); R93.5 Abnormal findings on diagnostic imaging of other abdominal regions, including retroperitoneum; F17.210 Nicotine dependence, cigarettes, uncomplicated
CPT/HCPCS: 74177; 80053; 81001; 83690; 84703; 85025; 99283; Q9967; A4216

== ENCOUNTER → 2023-11-15 | Outpatient (CLI) | payer MEDICAID, SELFPAY ==
--- OUTSIDE RECORDS SUMMARY | 2023-11-15 10:22 | XMS RPT_ITS | CCD ---
Author Name Unknown Address [address] [place] [id number] Organization [facility] Care Team Providers Care Track Laying Equipment Operator Name Role Phone Nely Arango MD Unavailable [phone] FREDA PRUITT Unavailable Unavailable NELY ARANGO Unavailable Unavailabl e NO PRIMARY CARE, MD Unavailable Unavailable FREDA PRUITT Unavailable Unavailable NELY ARANGO Unavailable Unavailabl e NO PRIMARY CARE, MD Unavailable Unavailable FREDA PRUITT Unavailable Unavailable NELY ARANGO Unavailable Unavailabl e NO PRIMARY CARE, MD Unavailable Unavailable Required, No Pcp Unavailable Unavailable Sandeep Arango Unavailable Unavailabl e Unavailable Primary Care Provider Unavailabl e SELF, SELF Referring Unavailable JUHI GIRALDO Attending Unavailable JUHI GIRALDO Attending Unavailable JUHI GIRALDO Referring Unavailable ANGELI LOPEZ Attending Unava ilable NO, PHYSICIAN Primary Care Unavailable NO, PHYSICIAN Primary Care Unavailable WES DEE Attending Unavailable Allergies Allergy Classification Reported Allergen(s) Allergy Type Date of Onset Reaction(s) Facility Penicillins (antibiotic) (1 source) Amoxicillin Drug Allergy Rash [facility] (7 sources) amoxicillin; Translations: [AMOXICILLIN] Drug Allergy 7 [facility] (4 sources) ibuprofen; Translations: [IBUPROFEN] Drug Allergy 3 [facility] (3 sources) Amoxicillin Drug Allergy 3 [facility] (4 sources) Penicillins; Translations: [PENICILLINS] Propensity to adverse reactions to drug 3 [facility] (3 sources) Prednisone; Translations: [PREDNISONE] Propensity to adverse reactions to drug 3 [facility] Medications Current Medications Medication Drug Class(es) Dates Sig (Normalized) Sig (Original) chlorzoxazone 500 mg oral tablet (3 sources) Muscle Relaxant Start: 08-14-2023 take 1 tablet by mouth four times daily as needed chlorzoxazone 500 MG tablet Take 1 tablet by mouth 4 times daily as needed. 12 tablet 0 08/14/2023 Active meloxicam 7.5 mg oral tablet (2 sources) Nonsteroidal Anti-inflammatory Drug Start: 09-11-2023 take 1 tablet by mouth once daily Meloxicam 7.5 MG tablet Take 1 tablet by mouth daily. 30 tablet 1 09/11/2023 Active ondansetron 4 mg disintegrating oral tablet (1 source) Serotonin-3 Receptor Antagonist Start: 06-10-2021 take 1 tablet by mouth three times daily ondansetron 4 mg oral tablet, disintegrating ; 1 tab(s) orally 3 times a day Quantity: 12 Refills: 0 Ordered: 10-Jun-2021 Sandeep Arango Start: 10-Jun-2021 Generic Substitution Allowed predniSONE 20 mg oral tablet (3 sources) Start: 08-14-2023 take 1 tablet by mouth twice daily predniSONE 20 MG tablet Take 1 tablet by mouth 2 times daily. 10 tablet 0 08/14/2023 Active Completed/Discontinued Medications Medication Drug Class(es) Dates Sig (Normalized) Sig (Original) VIT-FE FUMARATE-FA (5 sources) Start: 07-23-2017 VITAMINS 28-0.8 MG TABS VIT-FE FUMARATE-FA [id number] Nely Arango MD Problems Active Problems Problem Classification Problem Date Documented Da te Episodic/Chronic Other connective tissue disease (1 source) Pain in left lower limb; Translations: [Pain in left leg] 08-14-2023 Episodic Other connective tissue disease (2 sources) Pain in left leg; Translations: [Pain in left leg] Onset: 08-14-2023 Episodic Other injuries and conditions due to external causes (1 source) Hamstring injury; Translations: [Unspecified injury of muscle, fascia and tendon of the posterior muscle group at thigh level, left thigh, initial encounter] 08-14-2023 Episodic Other injuries and conditions due to external causes (2 sources) Unspecified injury of muscle, fascia and tendon of the posterior muscle group at thigh level, left thigh, initial encounter; Translations: [Unspecified injury of muscle, fascia and tendon of the posterior muscle group at thigh level, left thigh, initial encounter] Onset: 08-14-2023 Episodic Other non-traumatic joint disorders (1 source) Pain in left knee; Translations: [Pain in joint, lower leg] 09-11-2023 Episodic Spondylosis; intervertebral disc disorders; other back problems (2 sources) Sciatica, left side; Translations: [Sciatica, left side] Onset: 10-19-2023 Episodic Unclassified (2 sources) FOOD POISIONING OR APPENDICITS 06-10-2021 Past or Other Problems Problem Classification Problem Date Documented Da te Episodic/Chronic Mycoses (2 sources) Pityriasis versicolor; Translations: [Pityriasis versicolor] Onset: 03-04-2023 Episodic Normal and/or delivery (17 sources) Gestation period, 15 weeks; Translations: [Gestation period, 12 weeks] Onset: 07-23-2017 09-13-2017 Episodic Other infections; including parasitic (2 sources) Lyme disease, unspecified; Translations: [Lyme disease, unspecified] Onset: 03-04-2023 Episodic Sprains and strains (2 sources) Sprain of ligaments of lumbar spine, initial encounter; Translations: [Sprain of ligaments of lumbar spine, initial encounter] Onset: 03-04-2023 Episodic Results Test Name Value Interpretation Reference Range Facil ity Vital Signs Date Time Vital Sign Value Performing Clinician Latisha christianson 09-11-2023 11:11050 Body height 170.2 cm Juhi Giraldo DO Work Phone: [facility] 09-11-2023 11:11-0500 Body mass index (BMI) [Ratio] 23.96 kg/m2 Juhibárbara Jean Baptistejeff DO Work Phone: [facility] 09-11-2023 11:11-050 Body temperature 99.9 [degF] Juhibárbara Jean Baptistejeff DO Work Phone: [facility] 09-11-2023 11:110500 Body weight 69.4 kg Juhi Giraldo DO Work Phone: [facility] 08-14-2023 10:36-0400 Body height 167.6 cm [facility] 08-14-2023 10:35-0400 Diastolic blood pressure 72 mm[Hg] [facility] 08-14-2023 10:35-0400 Heart rate 102 /min [facility] 08-14-2023 10:35-0400 Respiratory rate 19 /min [facility] 08-14-2023 10:35-0400 SaO2% (BldA) [Mass fraction] 98 % [facility] 08-14-2023 10:35-0400 Systolic blood pressure 136 mm[Hg] [facility] 06-10-2021 14:45-0400 Diastolic blood pressure 60 mm[Hg] No Pcp Required [facility] 06-10-2021 14:45-0400 Heart rate 81 /min No Pcp Required [facility] 06-10-2021 14:45-0400 Respiratory rate 16 /min No Pcp Required [facility] 06-10-2021 14:45-0400 SaO2% (BldA) [Mass fraction] 99 % No Pcp Required [facility] 06-10-2021 14:45-0400 Systolic blood pressure 94 mm[Hg] No Pcp Required [facility] 06-10-2021 10:47-0400 Body height 167.6 cm No Pcp Required [facility] 06-10-2021 10:47-0400 Body temperature 98.6 [degF] No Pcp Required [facility] 06-10-2021 10:47-0400 Body weight 61.8 kg No Pcp Required [facility] 09-13-2017 10:43-0500 BMI (Body Mass Index) 25.18 kg/m2 Nely Arango MD [facility] 09-13-2017 10:43-0500 BP Diastolic 64 mm[Hg] Nely Arango MD [facility] 09-13-2017 10:43-0500 BP Systolic 118 mm[Hg] Nely Arango MD [facility] 09-13-2017 10:43-0500 Weight 72.94 kg Nely Arango MD [facility] 08-20-2017 14:21-0400 BMI (Body Mass Index) 24.71 kg/m2 Nely Arango MD [facility] 08-20-2017 14:21-0400 Body Temperature 97 [degF] Nely Arango MD [facility] 08-20-2017 14:21-0400 BP Diastolic 69 mm[Hg] Nely Arango MD [facility] 08-20-2017 14:21-0400 BP Systolic 108 mm[Hg] Nely Arango MD [facility] 08-20-2017 14:21-0400 Pulse (Heart Rate) 80 /min Nely Arango MD [facility] 08-20-2017 14:21-0400 Respiratory Rate 16 /min Nely Arango MD [facility] 08-20-2017 14:21-0400 Weight 71.58 kg Nely Arango MD [facility] 07-23-2017 08:25-0400 Body Temperature 97.59 [degF] Nely Arango MD [facility] 07-23-2017 08:25-0400 Height 170.18 cm Nely Arango MD [facility] 07-23-2017 08:25-0400 Weight 71.03 kg Nely Arango MD [facility] Encounters Encounter Date Encounter Type Care Provider Facility Start: 10-19-2023 End: 10-19-2023 Emergency department patient visit PHYSICIAN [facility] Start: 09-11-2023 ambulatory JUIH GIRALDO [facility] Start: 09-11-2023 End: 09-11-2023 Office outpatient new 45 minutes Juhi Giraldo DO Work Phone: [facility] Procedures Date Procedure Procedure Detail Performing Clinician Start: 09-13-2017 End: 09-13-2017 Routine OB Visit (Global) Nely moore MD Work Phone: Start: 08-20-2017 End: 08-21-2017 *CBC with Differential Nely salazar MD Work Phone: Start: 08-20-2017 End: 08-22-2017 *HEBSAG - Hep B Surface Antigen 6510 Nely Arango MD Work Phone: Start: 08-20-2017 End: 08-22-2017 *HIV antibody Nely Arango MD Work Phone: Start: 08-20-2017 End: 08-25-2017 Reagin Ab [Presence] in Serum by RPR Nely Arango MD Work Phone: Start: 08-20-2017 End: 08-20-2017 Routine OB Visit (Global) Celina chung [employer]ER Work Phone: Start: 08-20-2017 End: 08-21-2017 Rubella virus Ab [Units/volume] in Serum Nely Arango MD Work Phone: Start: 07-23-2017 End: 07-24-2017 *CBC with Differential Nely salazar MD Work Phone: Start: 07-23-2017 End: 07-24-2017 *HCVQSP Hepatitis C Quant, DNA Probe, Amplified Nely Arango MD Work Phone: Start: 07-23-2017 End: 07-24-2017 *HEBSAG - Hep B Surface Antigen 6510 Nely Arango MD Work Phone: Start: 07-23-2017 End: 07-24-2017 *HIV antibody Nely Arango MD Work Phone: Start: 07-23-2017 End: 07-24-2017 *TS Type and Screen Nely Arango MD Work Phone: Start: 07-23-2017 End: 07-24-2017 Reagin Ab [Presence] in Serum by RPR Nely Arango MD Work Phone: Start: 07-23-2017 End: 07-23-2017 Routine OB Visit (Global) Nely moore MD Work Phone: Start: 07-23-2017 End: 07-24-2017 Rubella virus Ab [Units/volume] in Serum Nely Arango MD Work Phone: Start: 07-23-2017 End: 07-24-2017 Us preg uterus after 1st trimest / gestation Nely Arango MD Work Phone: Plan of Treatment Date Care Activity Detail Author Start: 12-27-2027 Tetanus vaccination TETANUS [facility] Start: 10-30-2023 End: 10-30-2023 Patient encounter procedure 10/30/2023 10:45 AM EST Office Visit [facility] [address] [place] [address] Juhi Giraldo DO [address] [place] [address] [facility] Start: 06-28-2023 Influenza vaccination INFLUENZA VACCINE (#1) [facility] Start: 10-11-2017 End: 10-11-2017 Appointment Appointment [facility] Start: 09-17-2017 End: 09-17-2017 Appointment Appointment [facility] Start: 09-13-2017 End: 09-13-2017 Us preg uterus after 1st trimest 10/28 gestation US OB, >14 weeks [facility] Start: 09-13-2017 End: 09-13-2017 Appointment Appointment [facility] Start: 08-20-2017 End: 08-21-2017 *CBC with Differential *CBC with Differential [facility] Start: 08-20-2017 End: 08-22-2017 *HEBSAG - Hep B Surface Antigen 6510 *HEBSAG - Hep B Surface Antigen 6510 [facility] Start: 08-20-2017 End: 08-22-2017 *HIV antibody *HIV antibody [facility] Start: 08-20-2017 End: 08-20-2017 *TS Type and Screen *TS Type and Screen [facility] Start: 08-20-2017 End: 08-25-2017 Reagin antibody presence *RPR [facility] Start: 08-20-2017 End: 08-21-2017 Rubella virus Ab [Units/volume] in Serum *Rubella Screen [facility] Start: 2017 Screening for malignant neoplasm of cervix CERVICAL CANCER SCREENING DISCUSSION [facility] Start: 07-23-2017 End: 07-24-2017 *CBC with Differential *CBC with Differential [facility] Start: 07-23-2017 End: 07-24-2017 *GC/Chlamydia *GC/Chlamydia [facility] Start: 07-23-2017 End: 07-24-2017 *HCVQSP Hepatitis C Quant, DNA Probe, Amplified *HCVQSP Hepatitis C Quant, DNA Probe, Amplified [facility] Start: 07-23-2017 End: 07-24-2017 *HEBSAG - Hep B Surface Antigen 6510 *HEBSAG - Hep B Surface Antigen 6510 [facility] Start: 07-23-2017 End: 07-24-2017 *HIV antibody *HIV antibody [facility] Start: 07-23-2017 End: 07-24-2017 *TS Type and Screen *TS Type and Screen [facility] Start: 07-23-2017 End: 07-24-2017 Reagin antibody presence *RPR [facility] Start: 07-23-2017 End: 07-24-2017 Rubella virus Ab [Units/volume] in Serum *Rubella Screen [facility] Start: 07-23-2017 End: 07-24-2017 Urine culture, bacteria *CUUR - Culture, Urine ([place] Count) [facility] Start: 07-23-2017 End: 07-24-2017 Us preg uterus after 1st trimest 10/28 gestation US OB, >14 weeks [facility] Start: 2015 Third diphtheria, tetanus and acellular pertussis (DTaP) vaccination TDAP (ADULT) [facility] Start: 2012 Screening for Chlamydia trachomatis CHLAMYDIA SCREEN [facility] Start: 2011 HIV screening HIV SCREENING DISCUSSION [facility] Start: 2007 Vaccination for human papillomavirus HPV VACCINE ADOL (1 - 2-dose series) [facility] Start: 02-16-1997 COVID-19 VACCINE (#1) COVID-19 VACCINE (#1) [facility] Start: 1996 Hepatitis C screening HEPATITIS C VIRUS SCREENING [facility] Start: 1996 Screening for Chlamydia trachomatis GONORRHEA SCREEN [facility] Start: 1996 Tetanus vaccination TETANUS [facility] XR Knee - left 4 Views XR KNEE L EFT 4+ VIEWS Imaging Routine Chronic pain of left knee 09/11/2023 11:09 AM EST [facility] Payers Date Payer Category Payer Unknown 2023 Medicaid [id number] 2019 Unknown [id number] 1996 Unknown [id number] [id number] 1996 Unknown [id number] [id number]. [id number] 1996 Unknown [id number] 1996 Unknown [id number] [id number] 1996 Unknown [id number] 1996 Unknown [id number] 2.16. [id number] 1996 Unknown [id number] 2.16. [id number] Unknown [id number] Social History Date Type Detail Facility [facility] Tobacco smoking consumption unknown [facility] Start: 08-14-2023 Tobacco smoking status NHIS Smokes tobacco daily [facility] End: 07-28-2023 History of tobacco use Cigarette Smoker [facility] Start: 08-14-2023 End: 09-11-2023 Tobacco use and exposure Smokeless tobacco non-user [facility] Start: 08-14-2023 End: 09-11-2023 Alcohol intake Lifetime non-drinker (finding) [facility] Start: 1996 Sex Assigned At Not on file A [facility] Start: 09-11-2023 [facility] Start: 09-11-2023 Tobacco smoking status NHIS Ex-smoker [facility] End: 07-28-2023 History of tobacco use Current smoker [facility] Start: 09-11-2023 History of Social function [facility] History of Present illness Narrative 09-11-2023 Carmelita Charlesis - 09/11/2023 11:00 AM Gilbertbassem Giraldo DO - 09/11/2023 11:00 AM EST Note Date & Type Note Facility 09-11-2023 History of Presen t illness Narrative Chief Complaint Patient presents with Left Knee - Pain Pain Radiation To: hip Pain Duration: a few wks, was lifting heavy boxes. Pain Frequency: constant Pain Quality: aching, soreness, squeezing, sharp, tightness Factors That Aggravate Pain: activity (walking, standing, walking up or down hill, stairs.) Factors That Relieve Pain: rest (not much helps.) pattern designer and santiago. Here for initial consultation for left knee pain. She does note pain posteriorly and along the distal hamstrings. Occasional pain toward the buttock. Denies back pain or paresthesias. Recently seen in the emergency department where Prednisone and Chlorzoxazone were prescribed. Pertinent medical records and imaging reviewed. History of Lyme disease treated with antibiotic this summer. IMPRESSION/PLAN: Multiple xray views of the joint were ordered and interpreted by me. Xrays demonstrate well preserved joint space. Unremarkable left knee xrays Ddx discussed. Distal hamstring tendinopathy vs. Possible sciatica. Continue current conservative treatment. Medication management: Meloxicam prescribed. Therapeutic exercises: Physical therapy prescribed. Discussed additional workup and treatment that could be considered, including referral to a dairy equipment specialist. Follow-up: 7 weeks for re-evaluation. KNEE EXAM LEFT RIGHT Inspection No effusion. No deformity. No effusion. No deformity. Paltation Distal hamstring tenderness to palpation. No tenderness to palpation. ROM 0-130 degrees 0-130 degrees Strength 5/5 in flexion & extension. Pain provoked with resisted flexion. 5/5 in flexion and extension Gait: Non-antalgic Chelly: No laxity and firm end point. Posterior drawer: No laxity and firm end point. No laxity with varus/valgus maneuver. Carlos: Negative. SLR: Pos.-LT Visit Vitals Temp 99.9 F (37.7 C) (Temporal) Ht 1.702 m (5' 7 ) Wt 69.4 kg (153 lb) BMI 23.96 kg/m *Time components listed in minutes below. This data may or may not be needed for insurance reimbursement purposes. Reviewing clinical note(s) from previous visit/ER/urgent care/PCP/other specialists 4 Review of medical history 4 Review of medical referral coordinator or it trainer note 4 Independently obtain and review medical history and history of present illness with patient 4 Other counseling and coordination of care 7 Updating patient chart, documentation of clinical encounter and signing of orders 7 Medication ordering and discussion of risks, benefits and alternatives 3 PT ordering and discussion of expectations including proper progression 3 *Portions of this note may have been created with [employer] or other software which leads to grammatical and typographical errors which are not scheduling representative of the intent with my spoken words. Chief Complaint Patient presents with Left Knee - Pain Pain Radiation To: hip Pain Duration: a few wks, was lifting heavy boxes. Pain Frequency: constant Pain Quality: aching, soreness, squeezing, sharp, tightness Factors That Aggravate Pain: activity (walking, standing, walking up or down hill, stairs.) Factors That Relieve Pain: rest (not much helps.) pattern designer and santiago. Here for initial consultation for left knee pain. She does note pain posteriorly and along the distal hamstrings. Occasional pain toward the buttock. Denies back pain or paresthesias. Recently seen in the emergency department where Prednisone and Chlorzoxazone were prescribed. Pertinent medical records and imaging reviewed. History of Lyme disease treated with antibiotic this summer. IMPRESSION/PLAN: Multiple xray views of the joint were ordered and interpreted by me. Xrays demonstrate well preserved joint space. Unremarkable left knee xrays Ddx discussed. Distal hamstring tendinopathy vs. Possible sciatica. Continue current conservative treatment. Medication management: Meloxicam prescribed. Therapeutic exercises: Physical therapy prescribed. Discussed additional workup and treatment that could be considered, including referral to a dairy equipment specialist. Follow-up: 7 weeks for re-evaluation. KNEE EXAM LEFT RIGHT Inspection No effusion. No deformity. No effusion. No deformity. Paltation Distal hamstring tenderness to palpation. No tenderness to palpation. ROM 0-130 degrees 0-130 degrees Strength 5/5 in flexion & extension. Pain provoked with resisted flexion. 5/5 in flexion and extension Gait: Non-antalgic Chelly: No laxity and firm end point. Posterior drawer: No laxity and firm end point. No laxity with varus/valgus maneuver. Carlos: Negative. SLR: Pos.-LT Visit Vitals Temp 99.9 F (37.7 C) (Temporal) Ht 1.702 m (5' 7 ) Wt 69.4 kg (153 lb) BMI 23.96 kg/m *Time components listed in minutes below. This data may or may not be needed for insurance reimbursement purposes. Reviewing clinical note(s) from previous visit/ER/urgent care/PCP/other specialists 4 Review of medical history 4 Review of medical referral coordinator or it trainer note 4 Independently obtain and review medical history and history of present illness with patient 4 Other counseling and coordination of care 7 Updating patient chart, documentation of clinical encounter and signing of orders 7 Medication ordering and discussion of risks, benefits and alternatives 3 PT ordering and discussion of expectations including proper progression 3 *Portions of this note may have been created with [employer] or other software which leads to grammatical and typographical errors which are not scheduling representative of the intent with my spoken words. Clinical financial sales assistant/AT/MA was acting as a scribe today for this note. I have performed all essential components of the history, and physical exam. I have confirmed the diagnosis and developed a plan of care at this visit. I have reviewed the note following the visit and have made edits as appropriate to my evaluation and plan of care. Juhi Giraldo DO documented in this encounter [facility] Physician Emergency department Note 08-14-2023 Hipolito Rosario PA-C - 08/14/2023 11:30 AM EDT Note Date & Type Note Facility 08-14-2023 Physician Emergen cy department Note Emergency Department Report [facility] EM[facility]ENCY [facility]MENT Service Date:.08/14/23 PCP: No primary care provider on file. Chief Complaint: Chief Complaint Patient presents with Leg Pain Left leg pain, thigh X couple wks HPI Chula Lauren is a 27 y.o. female presents to the ED today due to left leg thigh pain for the past couple of weeks. Patient states did some heavy lifting and injured her leg. She was given some muscle relaxers by a family member and the pain improved. 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 It is from the knee to lateral posterior thigh. It is worse with ambulation. Patient does smoke. She is not taken type of hormone replacement or control. She denies any calf pain. She denies any chest pain, palpitation shortness of breath or dyspnea on exertion. She denies any headache, vision changes earache or sore throat. No numbness or tingling in the toes. She denies any back pain. Review of Systems: Review of Systems HENT: Negative. Respiratory: Negative. Cardiovascular: Negative. Gastrointestinal: Negative. Musculoskeletal: Positive for arthralgias and myalgias. Past Medical History: Past Medical History: Diagnosis Date Kidney stones Past Surgical History: No past surgical history on file. Allergies: Allergies Allergen Reactions Amoxicillin Rash Penicillins Rash Medications: Discharge Medication List as of 08/14/2023 11:30 AM START taking these medications Details chlorzoxazone 500 MG tablet Take 1 tablet by mouth 4 times daily as needed. Normal Disp-12 tablet, R-0 predniSONE 20 MG tablet Take 1 tablet by mouth 2 times daily. Normal Disp-10 tablet, R-0 Family History: History reviewed. No pertinent family history. Social History: Social History Socioeconomic History Marital status: Single Spouse name: Not on file Number of children: Not on file Years of education: Not on file Highest education level: Not on file Occupational History Not on file Tobacco Use Smoking status: Every Day Types: Cigarettes Smokeless tobacco: Never Vaping Use Vaping Use: Never used Substance and Sexual Activity Alcohol use: Never Drug use: Yes Types: Marijuana Sexual activity: Not on file Other Topics Concern Not on file Social History Narrative Not on file Social Determinants of Health Financial Resource Strain: Not on file Food Insecurity: Not on file Transportation Needs: Not on file Physical Activity: Not on file Stress: Not on file Social Connections: Not on file Intimate Partner Violence: Not on file Housing Stability: Not on file Physical Exam: General well-nourished well-developed patient in no acute distress and no respiratory distress. Answers my questions appropriately and follows my commands without difficulty. Lungs: lungs are clear to auscultation bilaterally. There are no Rales, wheezes or rhonchi. Heart: Heart is of regular rate and rhythm. No murmur or gallop. No direct thoracic or lumbar spine tenderness. No SI joint tenderness. Patient can flex extend trunk twist without difficulty. Range of motion of that left hip without click crepitation. Dorsiflexion plantar flexion is 5/5. Extension great toe was also intact. No tenderness of phalanges, tarsals metatarsals of that left foot. No tenderness over the mediolateral malleolus. Left knee no valgus varus joint space laxity. Negative anterior-posterior drawer. There is no swelling or palpable cords. She has tenderness along the posterolateral thigh. Vital Signs During ED Visit Patient Vitals for the past 24 hrs: BP Pulse Resp SpO2 Height 08/14/23 1036 -- -- -- -- 1.676 m (5' 6 ) 08/14/23 1035 136/72 102 19 98 % -- Differential Diagnosis: Muscle strain, hamstring injury, other etiologies Orders/Results: Orders Placed This Encounter chlorzoxazone 500 MG tablet predniSONE 20 MG tablet No results found for this or any previous visit. Radiographic Imaging No orders to display Lab/Imaging Results Summary: As above Procedures:none Procedures Progress Notes/Re-evaluation: At this time patient does not want further diagnostic testing. We discussed x-rays and did not feel the x-rays really would be helpful at this time as his pain has been going on for the past few weeks. No bony step-off or crepitation. Certainly DVT is a consideration however she has no palpable cords yearly risk factor would be smoking. She has precipitating event of lifting something heavy in guarded which got better on muscle duplex she is he will be referred to primary care. Seek immediate medical attention if any other concerns. Patient's case discussed with patient discharged satisfactory stable condition. ED Summary: As above Clinical Impression: 1. Pain of left lower extremity 2. Left hamstring injury, initial encounter No follow-ups on file. Discharge Medication List as of 08/14/2023 11:30 AM START taking these medications Details chlorzoxazone 500 MG tablet Take 1 tablet by mouth 4 times daily as needed. Normal Disp-12 tablet, R-0 predniSONE 20 MG tablet Take 1 tablet by mouth 2 times daily. Normal Disp-10 tablet, R-0 Discharge Medication List as of 08/14/2023 11:30 AM An After Visit Summary was printed and given to the patient with above information. . Hipolito Rosario PA-C 08/14/23 1135 [facility] Emergency department Note 08-14-2023 Hipolito Rosario PA-C - 08/14/2023 11:30 AM EDT Note Date & Type Note Facility 08-14-2023 Emergency departm ent Note Emergency Department Report [facility] EMERGENCY DEPARTMENT Service Date:.08/14/23 PCP: No primary care provider on file. Chief Complaint: Chief Complaint Patient presents with Leg Pain Left leg pain, thigh X couple wks HPI Chula Lauren is a 27 y.o. female presents to the ED today due to left leg thigh pain for the past couple of weeks. Patient states did some heavy lifting and injured her leg. She was given some muscle relaxers by a family member and the pain improved. 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 It is from the knee to lateral posterior thigh. It is worse with ambulation. Patient does smoke. She is not taken type of hormone replacement or control. She denies any calf pain. She denies any chest pain, palpitation shortness of breath or dyspnea on exertion. She denies any headache, vision changes earache or sore throat. No numbness or tingling in the toes. She denies any back pain. Review of Systems: Review of Systems HENT: Negative. Respiratory: Negative. Cardiovascular: Negative. Gastrointestinal: Negative. Musculoskeletal: Positive for arthralgias and myalgias. Past Medical History: Past Medical History: Diagnosis Date Kidney stones Past Surgical History: No past surgical history on file. Allergies: Allergies Allergen Reactions Amoxicillin Rash Penicillins Rash Medications: Discharge Medication List as of 08/14/2023 11:30 AM START taking these medications Details chlorzoxazone 500 MG tablet Take 1 tablet by mouth 4 times daily as needed. Normal Disp-12 tablet, R-0 predniSONE 20 MG tablet Take 1 tablet by mouth 2 times daily. Normal Disp-10 tablet, R-0 Family History: History reviewed. No pertinent family history. Social History: Social History Socioeconomic History Marital status: Single Spouse name: Not on file Number of children: Not on file Years of education: Not on file Highest education level: Not on file Occupational History Not on file Tobacco Use Smoking status: Every Day Types: Cigarettes Smokeless tobacco: Never Vaping Use Vaping Use: Never used Substance and Sexual Activity Alcohol use: Never Drug use: Yes Types: Marijuana Sexual activity: Not on file Other Topics Concern Not on file Social History Narrative Not on file Social Determinants of Health Financial Resource Strain: Not on file Food Insecurity: Not on file Transportation Needs: Not on file Physical Activity: Not on file Stress: Not on file Social Connections: Not on file Intimate Partner Violence: Not on file Housing Stability: Not on file Physical Exam: General well-nourished well-developed patient in no acute distress and no respiratory distress. Answers my questions appropriately and follows my commands without difficulty. Lungs: lungs are clear to auscultation bilaterally. There are no Rales, wheezes or rhonchi. Heart: Heart is of regular rate and rhythm. No murmur or gallop. No direct thoracic or lumbar spine tenderness. No SI joint tenderness. Patient can flex extend trunk twist without difficulty. Range of motion of that left hip without click crepitation. Dorsiflexion plantar flexion is 5/5. Extension great toe was also intact. No tenderness of phalanges, tarsals metatarsals of that left foot. No tenderness over the mediolateral malleolus. Left knee no valgus varus joint space laxity. Negative anterior-posterior drawer. There is no swelling or palpable cords. She has tenderness along the posterolateral thigh. Vital Signs During ED Visit Patient Vitals for the past 24 hrs: BP Pulse Resp SpO2 Height 08/14/23 1036 -- -- -- -- 1.676 m (5' 6 ) 08/14/23 1035 136/72 102 19 98 % -- Differential Diagnosis: Muscle strain, hamstring injury, other etiologies Orders/Results: Orders Placed This Encounter chlorzoxazone 500 MG tablet predniSONE 20 MG tablet No results found for this or any previous visit. Radiographic Imaging No orders to display Lab/Imaging Results Summary: As above Procedures:none Procedures Progress Notes/Re-evaluation: At this time patient does not want further diagnostic testing. We discussed x-rays and did not feel the x-rays really would be helpful at this time as his pain has been going on for the past few weeks. No bony step-off or crepitation. Certainly DVT is a consideration however she has no palpable cords yearly risk factor would be smoking. She has precipitating event of lifting something heavy in guarded which got better on muscle duplex she is he will be referred to primary care. Seek immediate medical attention if any other concerns. Patient's case discussed with patient discharged satisfactory stable condition. ED Summary: As above Clinical Impression: 1. Pain of left lower extremity 2. Left hamstring injury, initial encounter No follow-ups on file. Discharge Medication List as of 08/14/2023 11:30 AM START taking these medications Details chlorzoxazone 500 MG tablet Take 1 tablet by mouth 4 times daily as needed. Normal Disp-12 tablet, R-0 predniSONE 20 MG tablet Take 1 tablet by mouth 2 times daily. Normal Disp-10 tablet, R-0 Discharge Medication List as of 08/14/2023 11:30 AM An After Visit Summary was printed and given to the patient with above information. . Hipolito Rosario PA-C 08/14/23 1135 documented in this encounter [facility] Evaluation note Note Date & Type Note Facility documented in this encounter [facility] Evaluation note Note Date & Type Note Facility documented in this encounter [facility] Hospital Discharge instructions Attachments Note Date & Type Note Facility Hospital Discharge instructions The following attachments cannot be sent through Care Everywhere.Hamstring Strain: Rehab Exercises (Honduran)Hip Flexor Strain: Rehab Exercises (Honduran)Hamstring: Strain (Honduran)documented in this encounter [facility] Summary Purpose Family History No Family History Records FoundNo Family History Records FoundNo Family History Records FoundNo Family History Records FoundNo Family History Records FoundNo Family History Records Found Advance Directives No Advanced Directives Records FoundNo Advanced Directives Records FoundNo Advanced Directives Records FoundNo Advanced Directives Records FoundNo Advanced Directives Records FoundNo Advanced Directives Records Found Reason for Referral Specialty Diagnoses / Procedures Referred By Contac t Referred To Contact Physical Therapy Diagnoses Chronic pain of left knee Juhi Giraldo DO [address] [place] [address] [facility] [address] [place] [address] Referral ID Status Reason Start Date Expiration Date V isits Requested Visits Authorized [id number] New Request 09/11/2023 10/05/2024 1 1 Scheduling Instructions . Additional Source Comments INFORMATION SOURCE (unrecogn ized section and content) DATE CREATED AUTHOR AUTHOR'S ORGANIZ ATION 03/08/2019 [facility] DATE CREATED AUTHOR AUTHOR'S ORGANIZ ATION 04/06/2019 [facility] DATE CREATED AUTHOR AUTHOR'S ORGANIZ ATION 06/08/2022 [facility] DATE CREATED AUTHOR AUTHOR'S ORGANIZ ATION 09/13/2023 [facility] DATE CREATED AUTHOR AUTHOR'S ORGANIZ ATION 10/24/2023 [facility] <item> Privacy Markings (unrecogniz ed section and content) Section Author: Linda Marcial PROHIBITION ON REDISCLOSURE OF CONFIDENTIAL INFORMATION This notice accompanies a disclosure of information concerning a client made to you with the consent of such client. Reason for Visit (unrecogniz ed section and content) Reason Comments Pain FOR RECORDS PERTAINING TO PATIENTS WHO ARE OR HAVE BEEN ENROLLED IN A CHEMICAL DEPENDENCY/SUBSTANCEABUSE PROGRAM, SOME INFORMATION MAY BE OMITTED. This clinical summary was aggregated from multiple sources. Caution should be exercised in using it in the provision of clinical care. This summary normalizes information from multiple sources, and as a consequence, information in this document may materially change the coding, format and clinical context of patient data. In addition, data may be omitted in some cases. CLINICAL DECISIONS SHOULD BE BASED ON THE PRIMARY CLINICAL RECORDS. [employer] [facility]. provides no warranty or guarantee of the accuracy or completeness of information in this document.
--- NOTE | 2023-11-15 10:23 | MRI_ITS ---
EXAM: MR LUMBAR SPINE WITHOUT INTRAVENOUS CONTRAST CLINICAL INDICATION: pain TECHNIQUE: Multiplanar and multisequence MR images of the lumbar spine without intravenous contrast. COMPARISON: No relevant prior studies available. FINDINGS: VERTEBRAE: Normal. Vertebral body heights are preserved. Normal vertebral bodies and posterior elements. No spondylolisthesis. There is preservation of the normal lumbar lordosis. SPINAL CORD: Normal. Normal position and signal intensity of the conus medullaris. SOFT TISSUES: Normal. DISCS/SPINAL CANAL/NEURAL FORAMINA: L1-L2: Normal. Normal disc height and morphology. Normal spinal canal and lateral recesses. Normal neuroforamina. L2-L3: Normal. Normal disc height and morphology. Normal spinal canal and lateral recesses. Normal neuroforamina. L3-L4: Normal. Normal disc height and morphology. Normal spinal canal and lateral recesses. Normal neuroforamina. L4-L5: Normal. Normal disc height and morphology. Normal spinal canal and lateral recesses. Normal neuroforamina. L5-S1: Disc space narrowing and decreased T2 signal intensity with. 12 mm extruded disc noted extending to the left of midline causing marked stenosis of the left lateral recess and mild narrowing of the left neural foramen. Left S1 nerve root is displaced posteriorly by the disc fragment. MRI/Spine Lumbar (Routine) IMPRESSION: Large left paracentral L5-S1 disc extrusion causing marked narrowing of the lateral recess and displacement of the left S1 nerve root. Lumbar spine is otherwise intact. Electronically Signed: Radhames Dominguez MD at 12:42 EST ,
== END | disposition home or self-care (01) ==
LOC: MRI 10:17
PROVIDERS: PCP Family Medicine; Referring Provider Orthopaedic Surgery Orthopaedic Surgery of the Spine; Visit Provider Orthopaedic Surgery Orthopaedic Surgery of the Spine
DX: M54.16 Radiculopathy, lumbar region (principal)
CPT/HCPCS: 72148

== ENCOUNTER 2023-12-03 09:09 | Day surgery (SDC) | payer MEDICAID, SELFPAY ==
[2023-12-02 13:26] LABS: Absolute Lymphocyte Count 2.86 X10^3/uL (0.83-4.51); Absolute Neutrophil Count 5.1 X10^3/uL (2.0-7.7); Basophil# 0.02 X10^3/uL; Basophil% 0.2 % (0-1); Eosinophil# 0.15 X10^3/uL; Eosinophils% 1.7 % (0-5); Hematocrit 41.8 % (37-47); Hemoglobin 13.3 g/dL (12.0-15.0); Lymphocyte # 2.86 X10^3/ul (0.83-4.51); Lymphocyte % 32.9 % (19-41); Mean Corp Hgb Conc 31.8 g/dL (32-36); Mean Corpuscular Hgb 27.8 pg (27.0-32.0); Mean Corpuscular Volume 87.3 fL (81-99); Mean Platelet Vol. 8.6 fl (6.2-12.0); Monocyte% 5.7 % (0-10); NRBC Flagged by Analyzer 0 % (0-5); Neutrophil # 5.13 X10^3/uL (2.7-7.7); Platelet Count 379 K/mm3 (150-450); RBC Distribution Width CV 12.4 % (11.6-14.6); RBC Distribution Width SD 39.9 fl (35.1-43.9); Red Blood Count 4.79 M/mm3 (4.2-5.4); White Blood Count 8.7 K/mm3 (4.4-11.0)
[2023-12-02 14:09] LABS: Anion Gap 2 (5-15); BUN 14 mg/dL (7-18); BUN/Creat Ratio 19.1 RATIO (10-20); Calcium,Total 9.2 mg/dL (8.5-10.1); Chloride 105 mmol/L (98-107); Creatinine, Serum 0.73 mg/dL (0.55-1.02); EST Glomerular Filtration Rate 101 mL/min (>60); Est Glom Filt Rate - Afr Amer 122 mL/min (>60); Glucose 91 mg/dL (74-106); Potassium 3.7 mmol/L (3.5-5.1); Sodium Level 136 mmol/L (136-145)
[2023-12-02 14:12] LABS: Magnesium 2.4 mg/dL (1.6-2.6)
[2023-12-02 14:49] LABS: HIV - WCH Non-Reactive (Nonreactive); Hepatitis B Surface Antibody Reactive; Hepatitis C Antibody Non-Reactive (Nonreactive)
[2023-12-03 09:48] LABS: Internal QC Validated? YES +Cl - CLEAR BKGD; Pregnancy, Urine Negative Negative
[2023-12-03] MEDS: Lactated Ringers 1,000 ML 15 ML IV (09:58)
[2023-12-03] MEDS: Acetaminophen 500 MG Tablet 1000 MG PO (09:58)
[2023-12-03 10:00] VITALS: BP 120/78; PULSE 76; RESP 18; TEMP 36.3; O2SAT 100; BMI 24.5
[2023-12-03] MEDS: Magnesium 1 GM over 15 mins IV (10:00)
--- NOTE | 2023-12-03 10:00 | RAD_ITS ---
PROCEDURE: Intraoperative imaging. DATE OF EXAMINATION: December 03, 2023. INDICATION: Female, 28 years old. Left L5-S1 microdiscectomy. FLUOROSCOPY TIME (if supplied): (4.6 seconds) minutes/seconds. 0.73 mGy RAD/Spine 1 View Any Level IMPRESSION: Intraoperative imaging provided for left L5-S1 microdiscectomy. Electronically Signed: Jose Crow MD at 14:26 EST ,
[2023-12-03 10:23] LABS: Bedside Glucose 85 mg/dL (74-106)
--- NOTE | 2023-12-03 10:30 | HP.PCM_ITS ---
History and Physical MR#: [id number] Acct: [id number] Name: NISHI LÓPEZ Rep #: [id number] : 1995 Provider: Dr. Luis Pruett MD Age/Sex: 28/F Location: [facility] Status: Signed Intake Vital Signs 10/23/2313:05 Height 5 ft 6 in Weight: 185 lb BMI 29.8 Intake Visit Reasons: lumbar spine Chief Complaint: Lumbar radiculopathy Is patient in pain?: Yes (7-8) Allergies amoxicillin Allergy (Mild, Verified 11/19/23 14:44) HivesPenicillins Allergy (Verified 11/19/23 14:44) Hivesibuprofen Adverse Reaction (Verified 11/19/23 14:44) Rash Medications baclofen 5 mg tablet 5 mg PO DAILY 11/19/23 [History Confirmed 11/19/23] gabapentin 300 mg capsule 300 mg PO BID 11/19/23 [History Confirmed 11/19/23] hydrocodone-acetaminophen 5-325mg 5mg-325mg 1 tab PO BID 11/19/23 [History Confirmed 11/19/23] PFSH Medical History Anxiety Asthma Back pain Bipolar disorder Depression Dietary restriction Former smoker Heartburn History of IBS Injury of back Marijuana use Substance abuse Wears contact lenses Wears glasses Surgical History History of wisdom tooth extraction Social History Smoking Status: Former smoker alcohol intake: never substance use type: does not use caffeine: Yes what type of physical activity do you participate in: walking frequency: 5-6 times per week seatbelt use: always do you feel safe at home: Yes additional social history: Boyfriend- Lane Patient works at [employer] Details: This documentation accurately reflects the service provided and the decisions made by me, Dr. Luis Pruett MD 11/19/23 2070. Part of today?s visit was documented by Caitlyn ZABALA, acting as scribe. NISHI GE is a 28 year old F here today to discuss moving forward with surgery. She states that her pain is affecting her quality of life. Nishi continues to have severe low back pain radiating down the left lower extremity along with significant weakness in the foot. She has undergone [address] Tong including 1 epidural injection as well as 1 pyriformis injection. Both of these did not seem to give her persistent relief. She continues to have significant difficulty with activities of daily living. To review, following is her previous history. 11/15/23 phone visit: NISHI GE, is a 28 F who was seen by me in late September and MRI was ordered. She obtained MRI this morning. I was informed of the result. I called and spoke with the patient regarding the MRI findings. She has a large L5-S1 left-sided disc herniation. Patient states that she has tried 2 sets of injections with Dr. Tong in pain management including epidural injection as well as possibly piriformis injection. Both of these injections did not seem to give her persistent relief. I again explained options for treatment which include continued nonoperative treat measures versus surgery. Patient wishes to proceed with surgery as her symptoms are affecting her quality of life and have not improved with reasonable period Of nonsurgical treatment. She has also developed weakness of grade 4 g astrosoleus per my exam from late September. I discussed L5-S1 microdiscectomy surgery with her. All risk benefits and alternatives were discussed. Patient will be scheduled for L5-S1 left microdiscectomy on an urgent basis. She is nondiabetic. She smokes 5 to 6 cigarettes a day but says that she has quit 2 to 3 weeks ago. She has not seen her primary care physician for many years. She is otherwise healthy without any major chronic medical conditions. She will see me for a preop visit on Saturday. 10/23/23: NISHI GE is a 28 year old F here today for low back pain that extends from her left glute down her left hamstring to her left ankle. She is also experiencing numbness and tingling on her left side as well. She has been experiencing pain for the last 4 months but it has gradually gotten worse. She was seen by [facility] who did a knee Xray and said she tore her hamstring. She has been seen by chiropractor a few times with no relief. She was seen by [facility] on 10-20-23 who told her she was experiencing sciatica, she given a Toradol injection which gave her temp. relief. She rates her pain 10/10 today and states the pain is making her nauseous. She is unable to drive her car or go to work. Nishi was trying to help someone move about 4 months ago. He lifted up college and had a fall backwards about 4 months ago. Since then she has had low back pain and left buttock pain and left posterior knee pain. This aggravated to pain starting in the left gluteal region all the way down to the posterior thigh posterior leg and into the lateral aspect of the left foot. This is severely worsened over the last 1 month. She tried to do physical therapy but was unable to do it because of severe limitations with transportation. About 2 months ago, she had a course of prednisone oral treatment without significant help. She has not had any epidural injections. She has not had an MRI. Ortho Exam General General: Yes no acute distress Neurologic: Yes alert and Yes oriented x3 Spine SPINE TESTING CERVICAL THORACIC LUMBAR Musculoskeletal Strength 0=absent - 5=normal Details: Examination of the back shows left paraspinal tenderness in the lower lumbar spine. Neurologic evaluation of lower extremity shows 5 x 5 power in all muscles except for left gastrosoleus which is grade 4. Left passive straight leg raising test is positive. Coding Level of Care Code Off vis,est,level 3 Diagnoses Lumbar disc herniation M51.26 Time Spent (min) 35 Assessment and Plan Assessment and Plan (1) Lumbar disc herniation: Status: Acute Plan I again reviewed her x-rays and MRI of the lumbar spine. MRI was done last Saturday. This shows large L5-S1 paracentral disc herniation causing severe lateral recess stenosis. I explained to her options for treatment which include continued nonoperative treat measures versus surgery. Patient has had 2 injections through pain management without significant relief. She has had this pain for months now which is only worsening with time. This is affecting her activities of daily living and her quality of life. She wishes to proceed with surgical intervention. Surgical microdiscectomy was discussed in detail. All risk benefits and alternatives were discussed. Risks include but are not limited to infection, bleeding, injury to nerves and vessels, neuritis, persistent pain, persistent axial low back pain symptoms, persistent disc degeneration, recurrent disc herniation, need for future surgeries or procedures, need for fusion in the future, DVT, pulmonary embolism, persistent pain, cardiopulmonary event. Patient understands and agrees to proceed with surgery. Consent was signed.
[2023-12-03] MEDS: Clindamycin 900 MG/50 ML BAG 75 MG IV (11:50)
[2023-12-03] MEDS: Dexamethasone IV Preserv Free 10 MG/ML VIAL OPERA.SITE (13:21)
--- NOTE | 2023-12-03 13:42 | PCM.OPRPT ---
Report of Operation Date of Procedure: 12/03/23 Description of Surgical Findings:: Preoperative diagnosis: L5-S1 left paracentral disc herniation Postoperative diagnosis: L5-S1 left paracentral disc herniation Name of procedure: L5-S1 left sided laminotomy, microdiscectomy CPT 85050 Attending Surgeon: Dr. Luis Pruett Estimated blood loss: 15 mL Anesthesia: General Indications: Patient is a 28-year-old lady who presented with low back pain and severe left lower extremity radiation. MRI revealed L5-S1 Left paracentral disc herniation. All options of treatment were discussed which included continued nonoperative treatment measures like rest physical therapy, injections. After prolonged nonsurgical treatment, patient requested surgical intervention for microdiscectomy. All risks and benefits associated with the procedure were explained to the patient. The risks include but are not limited to infection, bleeding, injury to nerves and vessels, persistent paresthesia, incidental dural tear, recurrent disc herniation, spinal instability and need for fusion or other procedures in future, persistent pain, persistent weakness and numbness, etc. Procedure: The patient was identified in the preoperative holding suite using Unique patient identifiers. Skin was marked, consent was reviewed, and all questions were answered. The patient was then brought back to the operative room. A surgical timeout was performed to make sure correct procedure was being done on the correct patient and all operative room staff were on the same page. General endotracheal anesthesia was then given to the patient. The patient was then turned prone onto a Klever table over a Juan Luis frame. The back was prepped and draped in usual fashion. Preoperative antibiotic was injected IV. A final timeout was then again done just before starting the procedure. An 18-gauge spinal needle was inserted and was confirmed on C-arm lateral view to be at the L5-S1 level. An incision was then carried out approximately 1 inch length in the midline. Bovie was utilized to dissect through the subcutaneous tissue up to the fascia. The fascia was bovied at the spinous process. Subperiosteal dissection was carried out along the left side of the spinous process and the lamina. This dissection was stopped at the level of the medial capsule of the facet joint. Lateral edge of the pars was also identified. A [place] was then placed under the inferior edge of the lamina and a C-arm lateral view was repeated. The level was confirmed to be the L5-S1 interspace. A Dueñas retractor of appropriate depth was then placed to provide retraction throughout the remainder of the surgery. A trin[place] was then utilized to make a laminotomy window medial to the facet and lateral to the spinous process. Care was taken to preserve at least 1 cm of bone from the lateral border of the pars. Once the bone was thinned out a Kerrison rongeur was utilized to complete the laminotomy. The ligamentum flavum was then removed with the help of pituitaries and Kerrison rongeurs. Ligamentum flavum in the lateral recess was then removed with Kerrison rongeur. The dura and traversing nerve root were then identified with the help of a [place] #4. A suction nerve root retractor was then utilized to retract the dura and the traversing nerve root medially. A cruciate incision over the annulus was performed. Disc fragments were then teased out with the help of a nerve hook and [place]. The nerve hook and [place] were then used to probe inferiorly and superiorly and medially to tease out more disc fragments. Further loose disc fragments from the disc space were also removed with help of pituitary. Irrigation of the disc space through an Angiocath was performed to remove any further loose disc fragments. once adequate decompression was obtained by removal of all loose disc fragments including the ones that were extruded, irrigation was done with normal saline. 10 mg of preservative-free dexamethasone was then sprinkled over the traversing nerve root. A small piece of Gelfoam was then placed over the bony window. The Dueñas retractor was then removed. And closure was done in layers, 0 Vicryl for the deep fascia, 2-0 Vicryl for subcutaneous tissue, and 4-0 Monocryl for the skin. The deep fascial layer was closed in a watertight fashion with interrupted 0 Vicryl. The skin closure was augmented with Dermabond. 2 x 2 gauze was then placed over the wound covered with Tegaderm. The patient was then turned supine onto a hospital bed. The patient was extubated and taken to PACU in stable condition. The patient tolerated the procedure well and no complications occurred. Estimated blood loss for the entire surgery was 15 mL. No instrumentation was utilized in this case. No dural tear occurred in this case. I was present for the entirety of the case and performed the surgery myself. Admit VTE Documentation VTE Mechan Device Prophylaxis: SCD's Procedures Musculoskeletal [id number]: Other Procedure See Report
[2023-12-03 14:00] VITALS: BP 120/78; BP 96/63; PULSE 73; RESP 18; TEMP 36.1; O2SAT 99
[2023-12-03 14:17] VITALS: BP 120/78; BP 99/58; PULSE 69; RESP 16; O2SAT 99
[2023-12-03 14:30] VITALS: BP 105/61; BP 111/61; BP 120/78; PULSE 64; PULSE 80; RESP 16; RESP 17; O2SAT 95; O2SAT 98
[2023-12-03 14:48] VITALS: BP 120/78; BP 99/64; PULSE 78; RESP 16; TEMP 36.6; O2SAT 99
[2023-12-03 15:27] VITALS: BP 120/78
[2023-12-05 04:08] LABS: Hepatitis A AB, Total Negative (Negative)
== END 2023-12-03 15:48 | disposition home or self-care (01) ==
LOC: SDC 09:10 → AC 09:11
PROVIDERS: Anesthesiology; PCP Family Medicine; Referring Provider Family Medicine; Visit Provider Orthopaedic Surgery Orthopaedic Surgery of the Spine
PROC: (CPT 63030; principal; 2023-12-03 10:30)
DX: M51.26 Other intervertebral disc displacement, lumbar region (principal); Z87.891 Personal history of nicotine dependence
CPT/HCPCS: 63030; 36415; 72020; 76000; 80048; 81025; 82962; 83735; 85025; 86703; 86706; 86708; 86803; 87077; 87081; 93005; J7120; J2405; J3475

== ENCOUNTER 2024-06-18 13:05 | Emergency (ER) | payer MEDICAID, SELFPAY ==
[2024-06-18] VITALS (7 sets, daily range): BP systolic 124–138; BP diastolic 63–91; PULSE 71–91; RESP 15–18; TEMP 36.4–36.7; O2SAT 97–100; BMI 26.4
--- NOTE | 2024-06-18 13:20 | MRI_ITS ---
STUDY: MRI LUMBAR SPINE WITH AND WITHOUT CONTRAST REASON FOR EXAM: Female, 28 years old. Lumbar pain R/O cauda equina -- INTERMITTENT LBP started sev weeks ago. increased pain the last sev days with sensations in thighs and buttocks. Bladder incontinence. h/o wesley disc and laminectomy l5-s1 6mos ago. c/o numb, tingling, bilat leg weakness. TECHNIQUE: Standardized fat and water weighted pulse sequences were obtained in the sagittal and axial planes. Pre and postcontrast images obtained. Contrast: 13 mL clariscan IV COMPARISON: MRI of 11/15/2023 FINDINGS: Vertebral bodies and alignment. 1. Vertebral body height and alignment are maintained. No evidence of marrow edema or occult fracture. 2. Subtle postoperative changes extending to LEFT of midline at the L5-S1 level.. Minimal postoperative scar noted. No evidence of fluid collections hematoma seroma or abscess. 3. Normal appearance of the sacrum and sacroiliac joints. Intervertebral disks levels. T12-L1: Normal disc height, hydration and morphology. Normal bilateral facet joints. Normal central canal and bilateral lateral recesses. Normal bilateral intervertebral neural foramina. Endplate: No focal endplate marrow changes or endplate deformity. L1-2: Normal disc height, hydration and morphology. Normal bilateral facet joints. Normal central canal and bilateral lateral recesses. Normal bilateral intervertebral neural foramina. Endplate: No focal endplate marrow changes or endplate deformity. L2-3: Normal disc height, hydration and morphology. Normal bilateral facet joints. Normal central canal and bilateral lateral recesses. Normal bilateral intervertebral neural foramina. Endplate: No focal endplate marrow changes or endplate deformity. L3-4: Normal disc height, hydration and morphology. Normal bilateral facet joints. Normal central canal and bilateral lateral recesses. Normal bilateral intervertebral neural foramina. Endplate: No focal endplate marrow changes or endplate deformity. L4-5: No disc herniation or canal stenosis, mild facet hypertrophic changes. No evidence of nerve root impingement. The neural foramina are widely patent. Endplate: No focal endplate marrow changes or endplate deformity. L5-S1: Disc desiccation, LEFT posterior lateral disc herniation with extruded disc material extending into the anterior epidural space with compression of the LEFT lateral recess. Compression of nerve roots in the LEFT lateral recess and LEFT neural foramen suspected. Findings are consistent with a recurrent or residual disc herniation. No central canal stenosis. Endplate: Subtle Modic type I marrow edema involving the endplates. Spinal cord: Normal appearance of the spinal cord and conus. Conus is located at L1. Cauda equina has normal appearance. No evidence of cord compression or edema. No intramedullary signal abnormality noted. Paraspinous soft tissues: Normal visualized paraspinous soft tissue structures. MRI/Spine Lumbar W/WO Contrast IMPRESSION: 1. Postoperative changes of laminectomy on LEFT at L5. 2. Large recurrent or residual disc herniation on the LEFT at L5-S1 with compression LEFT lateral recess and LEFT neural foramen with expected impingement of the nerve roots including the LEFT L5 and LEFT S1 nerve roots. 3. Endplate edema/Modic type I changes involving the endplates at L5-S1. 4. Remaining disc spaces are maintained. 5. Spinal cord and conus have normal appearance. Electronically Signed: Steffen Chong MD at 18:50 EDT ,
--- NOTE | 2024-06-18 13:24 | EDS_ITS ---
HPI History of Present Illness Chief Complaint: Numb/Ting Informant: patient Onset/Context/Timing Onset: Weeks Context: Gradual Onset Timing: Intermittent Quality: Sharp Location: Lumbar Current Severity: Moderate Maximum Severity: Moderate Worsened by: improves with Movement Relieved by: Nothing Associated Symptoms Associated Symptoms: Numbness, Tingling, Urinary Incontinence and - (Bilateral leg weakness); Negative for Fever, Abdominal Pain, Dysuria, Unable to Ambulate, Unable to Transfer, Urinary Retention, Constipation or Fecal Incontinence Narrative Narrative: 28-year-old female history of prior L5-S1 herniated disc with discectomy and laminectomy done by Dr. Gloria about 6 months ago. Patient she had done well several weeks ago started getting intermittent lower back pain. Last several days has had increasing pain with subjective decreasing sensation in her thighs and buttock region. With intermittent bladder incontinence. No retention. No fever. No falls or trauma. She is seeing pain management who sent her down to the emergency department today. She has had no recent injections. Prior similar symptoms: Yes and No Recent Illness/Hospitalization: No PFSH PFSH Medical History Wears contact lenses Wears glasses Bipolar disorder Depression Anxiety Substance abuse Marijuana use Injury of back Dietary restriction Back pain Heartburn Former smoker Asthma History of IBS Home Medications ?Medication ?Instructions ?Recorded ?Last Taken ?Type baclofen 5 mg tablet 5 mg PO DAILY 11/19/23 11/26/23 History Allergy/AdvReac Type Severity Reaction Status Date / Time amoxicillin Allergy Mild Hives Verified 11/19/23 14:44 Penicillins Allergy Hives Verified 11/19/23 14:44 ibuprofen AdvReac Rash Verified 11/19/23 14:44 Surgical History History of wisdom tooth extraction Social History Smoking Status: Former smoker alcohol intake: never substance use type: does not use caffeine: Yes what type of physical activity do you participate in: walking frequency: 5-6 times per week seatbelt use: always do you feel safe at home: Yes additional social history: Boyfriend- Lane Patient works at [employer] ROS ED ROS Narrative Back pain. Weakness and decreased sensation in her legs. Constitutional Constitutional ED: Denies chills or fever(s) Eyes Eyes: Denies blurry vision ENT ENT ED: Denies ear pain Cardiovascular Cardiovascular: Denies chest pain Respiratory/Chest Respiratory/Chest: Denies dyspnea Gastrointestinal Gastrointestinal: Denies abdominal pain, constipation, diarrhea, melena or nausea Genitourinary Genitourinary ED: Reports other Details: Urinary incontinence ; Denies dysuria, hematuria or urinary frequency Musculoskeletal Musculoskeletal: Reports back pain; Denies myalgias or neck pain Integumentary Denies abscess or Abrasions Neurologic Neurologic: Denies headache(s) Psychiatric Psychiatric: Denies anxiety Endocrine Endocrinology: Denies cold intolerance Hematologic/Lymphatic Hematologic/Lymphatic: Denies easy bleeding, easy bruising or lymphadenopathy Allergic/Immunologic Allergic/Immunologic ED: Denies mouth swelling, tongue swelling or urticaria EXAM Physical Exam Narrative Exam Narrative: 28-year-old female sitting upright in bed. Vital signs are stable and afebrile. Pulse ox 100% on room air no signs of hypoxia. H EENT exam unremarkable. Neck nontender. Lungs clear to auscultation bilaterally. Heart regular rhythm no murmur rate about 90. Abdomen soft nontender. 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 Normal range of motion. Left leg is extremely weak right leg is definitely weak but she can do some dorsi and plantarflexion when she is unable doing the left. She has some sensation but said decreased in her thighs and her perianal area. She cannot lift her legs to do straight leg raise. Back she has a well-healed prior lumbar scar. There is no redness or warmth or signs of trauma. Is nontender. Neurologically he is awake and alert. With decreased strength and sensation lower extremities and perianally. Concern for possible cauda equina. Const Vital Signs: 06/18/24 13:06 06/18/24 14:06 06/18/24 15:21 Temperature 97.6 F L 97.7 F L Temperature Source Temporal Oral Pulse Rate 90 87 76 Respiratory Rate 18 16 15 Blood Pressure 130/91 H 128/88 H 124/63 H Blood Pressure Mean 104 101 83 Pulse Ox 100 98 98 Oxygen Delivery Method Room Air Room Air 06/18/24 16:00 Temperature Temperature Source Pulse Rate 81 Respiratory Rate 16 Blood Pressure 131/78 H Blood Pressure Mean 95 Pulse Ox 98 Oxygen Delivery Method Room Air Positive well nourished and well developed; Negative for cachectic, contractures or unkempt General Appearance ED: well developed; Negative for unkempt, cachectic, contractures, NAD or pallor Nutritional Appearance: Negative for cachectic HEENT Reports moist mucous membranes; Denies dry mucous membranes Negative for trauma or tenderness Mouth ED: No dry mucous membranes Mouth: No dry mucous membranes Eyes PERRL and EOMs intact bilaterally General Eye ED: Negative for pale conjunctiva or scleral icterus Neck no lymphadenopathy, supple and no JVD General: Negative for tenderness Thyroid: Negative for other Chest Wall Chest: Negative for other Resp normal respiratory effort and clear to auscultation bilaterally Effort and Inspection: Negative for pain with movement Auscultation: Negative for rales, rhonchi, wheezes or diminished lung sounds Cardio regular rate, regular rhythm, S1 normal heart sound, S2 normal heart sound and no murmurs Palpation: Negative for palpable S3 Rate: Negative for bradycardia or tachycardic Rhythm: Negative for abnormal rhythm Bruits: Negative for other GI normal to inspection, nondistended, normoactive bowel sounds, soft to palpation, non-tender, non-distended and no masses Inspection: Negative for abdominal distention Palpation: Negative for tender, guarding or rebound tenderness present Back/Spine normal to inspection and no thoracic nor lumbar tenderness Back/Spine Narrative: Well-healed prior lumbar scar. Cervical Spine: Negative for cervical spine tenderness and Negative for paracervical muscle tenderness Thoracic Spine / Upper Back: Negative for paraspinal muscle tenderness Extremity normal to inspection and no clubbing, cyanosis or edema Extremity Narrative: Decreased sensation. Decreased strength right and left lower extremities more so on the left. She cannot lift the left leg. She cannot do dorsi or plantarflexion. She has limited dorsi and plantarflexion on the right. Decreased perianal sensation. Concern for cauda equina. General Extremety ED: Negative for edema or tenderness General Extremity: Negative for edema Neuro oriented x3 and No no sensory deficits noted Sensorium / Orientation: alert; Negative for confused, lethargic or stuporous Motor Exam: strength abnormal; Negative for strength 5/5 throughout Psych mental status grossly normal Appearance: Negative for unkempt Attitude: No agitated Mood & Affect: Negative for depressed, sad or tearful Skin no rashes or lesions noted and no wounds General Skin Exam: Negative for jaundice or pallor Lesions: No lesion noted Rashes: No rashes noted Trauma: Negative for abrasion or puncture MDM MDM MDM Narrative Medical decision making narrative: 28-year-old female status post laminectomy and discectomy 6 months ago. Had been doing well several weeks ago started getting recurrent lower back pain in the last 2 days she has had increasing pain with urinary incontinence and decreased sensation and strength in her lower extremities. I have already called MRI they can do her but they can get it done 17:30 pm. I have her back surgeon on page. She will receive morphine for pain and Zofran. I went back to reevaluate the patient and 4:50 PM. And she was taken MRI early. Patient be turned over to the afternoon physician Dr. Alexander Ellis to make final disposition after the MRI results. History & Record Review Discussion w/independent historian: Patient Discharge Plan Triage Chief Complaint: Numb/Ting ED Provider: Robert Pitt Dx/Rx/DC Orders Clinical Impression: Back pain, History of lumbar surgery, History of degenerative disc disease Prescriptions: No Action baclofen 5 mg tablet 5 mg PO DAILY Primary Care Provider: Care Physician,No Primary Referrals: Ken Rodríguez MD [Non-Staff] - Luis Pruett MD [Med Staff - Active Staff] - As soon as possible Print Language: Khmer
[2024-06-18] MEDS: Morphine 4 MG/ML Syringe IV ×2 (13:37→19:34)
[2024-06-18] MEDS: Ondansetron 4 MG/2 ML Vial IV (13:38)
== END 2024-06-18 20:04 | disposition home or self-care (01) ==
PROVIDERS: Emergency Provider Emergency Medicine; Referring Provider Emergency Medicine; Visit Provider Emergency Medicine
DX: M51.27 Other intervertebral disc displacement, lumbosacral region (principal); Z87.891 Personal history of nicotine dependence
CPT/HCPCS: 72158; 96374; 96375; 96376; 99283; A9575; A4216; J2405

== ENCOUNTER 2024-06-24 17:16 | Observation (INO) | payer MEDICAID, SELFPAY ==
[2024-06-23 12:27] LABS: Absolute Lymphocyte Count 2.05 X10^3/uL (0.83-4.51); Absolute Neutrophil Count 3.4 X10^3/uL (2.0-7.7); Basophil# 0.03 X10^3/uL; Basophil% 0.5 % (0-1); Eosinophil# 0.19 X10^3/uL; Eosinophils% 3.2 % (0-5); Hematocrit 39.6 % (37-47); Hemoglobin 12.9 g/dL (12.0-15.0); Lymphocyte # 2.05 X10^3/ul (0.83-4.51); Lymphocyte % 34.1 % (19-41); Mean Corp Hgb Conc 32.6 g/dL (32-36); Mean Corpuscular Hgb 27.9 pg (27.0-32.0); Mean Corpuscular Volume 85.5 fL (81-99); Mean Platelet Vol. 8.9 fl (6.2-12.0); Monocyte# 0.37 X10^3/uL; Monocyte% 6.1 % (0-10); NRBC Flagged by Analyzer 0 % (0-5); Neutrophil # 3.37 X10^3/uL (2.7-7.7); Neutrophil % 55.9 % (47-70); Platelet Count 332 K/mm3 (150-450); RBC Distribution Width CV 12.7 % (11.6-14.6); RBC Distribution Width SD 39.5 fl (35.1-43.9); Red Blood Count 4.63 M/mm3 (4.2-5.4)
[2024-06-23 14:11] LABS: Anion Gap 6 (5-15); BUN 19 mg/dL (7-18); BUN/Creat Ratio 24.5 RATIO (10-20); Calcium,Total 9.3 mg/dL (8.5-10.1); Chloride 108 mmol/L (98-107); Creatinine, Serum 0.78 mg/dL (0.55-1.02); EST Glomerular Filtration Rate 94 mL/min (>60); Est Glom Filt Rate - Afr Amer 114 mL/min (>60); Estimated Creatinine Clearance 115.34 ml/min; Glucose 107 mg/dL (74-106); Potassium 3.7 mmol/L (3.5-5.1); Sodium Level 139 mmol/L (136-145)
[2024-06-23 15:03] LABS: Magnesium 2.3 mg/dL (1.6-2.6)
[2024-06-23 15:07] LABS: HIV - WCH Non-Reactive (Nonreactive); Hepatitis B Surface Antibody Non-Reactive; Hepatitis C Antibody Non-Reactive (Nonreactive)
[2024-06-24] VITALS (12 sets, daily range): BP systolic 105–127; BP diastolic 63–87; PULSE 69–96; RESP 14–18; TEMP 35.9–36.6; O2SAT 96–100; BMI 25.9
[2024-06-24 05:07] LABS: Hepatitis A AB, Total Negative (Negative)
[2024-06-24] MEDS: Lactated Ringers 1,000 ML 15 ML IV ×2 (12:50→17:35)
[2024-06-24] MEDS: Acetaminophen 500 MG Tablet 1000 MG PO ×2 (12:54→23:23)
[2024-06-24] MEDS: Magnesium 1 GM over 15 mins IV (12:54)
--- NOTE | 2024-06-24 12:59 | PRE.ANES_ITS ---
ASA Classification* ASA Classification ASA Classification: 2 Assessment & Plan Anesthesia* Anesthesia Assessment Anesthesia Assessment: Discussed sedation and/or anesthesia options, risks, benefits, and alternatives with patient/parents/legal guardian/POA. Questions invited. The patient/parents/legal guardian/POA seems to understand and agrees to proceed with anesthesia plan. Reviewed the physical assessment, medical history, allergy history and patient home medications list prior to surgery/procedure/anesthetic and documented any changes. Performed airway and anesthesia risk assessments. Anesthesia Type Anesthesia Type: General Anesthesia Focused Assessment* Temperature: 97.6 F Pulse Rate: 84 Blood Pressure: 125/83 Respiratory Rate: 16 Pulse Ox: 100 Airway Assessment Mouth opens: >3 cm Mallampati Score: II Focused Labs Anesthesia Preop lab: CBC WBC 6.0 K/mm3 (4.4-11.0) 06/23/24 12:06 RBC 4.63 M/mm3 (4.2-5.4) 06/23/24 12:06 Hgb 12.9 g/dL (12.0-15.0) 06/23/24 12:06 Hct 39.6 % (37-47) 06/23/24 12:06 Plt Count 332 K/mm3 (150-450) 06/23/24 12:06 CHEMISTRY Potassium 3.7 mmol/L (3.5-5.1) 06/23/24 12:06 Sodium 139 mmol/L (136-145) 06/23/24 12:06 Magnesium 2.3 mg/dL (1.6-2.6) 06/23/24 12:06 BUN 19 mg/dL (7-18) H 06/23/24 12:06 Creatinine 0.78 mg/dL (0.55-1.02) 06/23/24 12:06 Glucose 107 mg/dL (74-106) H 06/23/24 12:06 POC Glucose 85 mg/dL (74-106) 12/03/23 09:47 COAG PT 11.8 SECONDS (11.7-14.9) 01/24/18 14:27 HCG, Quant 6463 mIU/mL (1-3) H 05/25/21 09:30 Urine Test Negative Negative 12/03/23 09:30 Pre-Assessment Diagnosis/Proposed Procedure Planned Operative Procedure(s): (L) L5-S1 MIS-TLIF Anesthesia History 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 When Was Last Pacemaker Check QUESTION #4 FULL TEXT: You/Your Family Experience fever (hyperthermia) with Anesthesia Last Oral Intake Last Oral intake: Last Oral Intake NPO since 19:30 06/24/24 12:45 Meds taken in AM with sips of No 06/24/24 12:45 water? Meds patient instructed to take am of surgery PONV PONV - audiovisual technician: PONV - audiovisual technician Female Yes 06/22/24 13:35 HX of Motion Sickness Yes 06/22/24 13:35 HX of N/V After Surgery No 06/22/24 13:35 Non-Smoker Yes 06/22/24 13:35 Duration of Surgery greater Yes 06/22/24 13:35 than 60 minutes Number of Risk Factors 4 06/22/24 13:35 PONV Score Severe Risk 06/22/24 13:35 Height & Weight Height & Weight: Anesthesia: Height & Weight Height 5 ft 7 in 06/24/24 12:45 Weight: 75.1 kg 06/24/24 12:45 Body Mass Index (BMI) 25.9 06/24/24 12:45 Respiratory Assessment Respiratory Assessment - audiovisual technician: Respiratory Tract Infection Hx - audiovisual technician Hx Respiratory Tract Infection No 06/22/24 13:35 STOP Sleep Apnea STOP Sleep Apnea - audiovisual technician: STOP Sleep Apnea - audiovisual technician Hx Hypertension No 06/22/24 13:35 Hx Sleep Apnea No 06/22/24 13:35 CPAP BIPAP Do you snore loudly (louder No 06/22/24 13:35 than talking or can be heard Do you often feel tired/ No 06/22/24 13:35 fatigued/ sleepy during daytime? Has anyone observed you stop No 06/22/24 13:35 breathing during sleep? STOP Results Negative 06/22/24 13:35 QUESTION #5 FULL TEXT : Do you snore loudly (louder than talking or can be heard through closed doors)? 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 Specify any problems Hx of Preganancy in last 3 No 06/22/24 13:35 Months Nurse Filling Out Transfusion VCHRISTIN 06/22/24 13:35 & Questions: Date: 06/22/24 06/22/24 13:35 Time: 13:37 06/22/24 13:35 Patient unable to answer at this time (ie. confused, unrespo /Reproduction History /Reproductive History - audiovisual technician: /Reproductive Hx- audiovisual technician Hx Now No 06/22/24 13:35 Gestational Age (in weeks): EDC: Hx Hx Para Hx Section SAB No 06/22/24 13:35 Active Medications Active Medications: Current Medications Generic Name Dose Route Start Last Admin Trade Name Freq PRN Reason Stop Dose Admin Acetaminophen 1,000 mg 06/24/24 14:30 06/24/24 12:54 Acetaminophen 500 Mg Tablet PO 06/24/24 14:31 1,000 mg X1 ONE Administration Clindamycin Phosphate 900 mg in 50 mls @ 75 mls/hr 06/24/24 14:30 Cleocin IV 06/24/24 15:09 PREOP ONE Magnesium Sulfate 1 gm/ 102 mls @ 408 mls/hr 06/24/24 14:30 06/24/24 12:54 Dextrose IV 06/24/24 14:44 408 mls/hr X1 ONE Administration Lactated Ringer's 1,000 mls @ 15 mls/hr 06/24/24 12:45 06/24/24 12:50 IV 15 mls/hr .Q48H DES Administration Insulin Human Lispro 1 - 6 unit 06/24/24 14:30 Insulin Lispro 100 Unit/Ml Insuln.Pen SC Q4H PRN PRN BG>/= 180, SEE PROTOCOL Protocol PFSH Medical History Hypertension Wears contact lenses Wears glasses Bipolar disorder Depression Anxiety Substance abuse Marijuana use Injury of back Dietary restriction Back pain Heartburn Former smoker Asthma History of IBS Home Medications ?Medication ?Instructions ?Recorded ?Last Taken ?Type aspirin 500 mg tablet,delayed 500 mg PO DAILY PAIN 06/22/24 06/22/24 History release gabapentin 300 mg capsule 300 mg PO DAILY PAIN 06/22/24 06/23/24 06:30 History ibuprofen 200 mg tablet (Advil) 200 mg PO Q8H PAIN 06/22/24 Unknown History oxycodone 5 mg capsule 5 mg PO TID PRN pain 06/22/24 06/23/24 20:30 History Allergy/AdvReac Type Severity Reaction Status Date / Time amoxicillin Allergy Mild Hives Verified 06/24/24 12:46 Penicillins Allergy Hives Verified 06/24/24 12:46 hydrocodone AdvReac Blood Verified 06/24/24 12:46 pressure ibuprofen AdvReac Rash Verified 06/24/24 12:46 Surgical History Hx of discectomy History of wisdom tooth extraction Social History Smoking Status: Former smoker alcohol intake: never substance use type: does not use caffeine: Yes what type of physical activity do you participate in: walking frequency: 5-6 times per week seatbelt use: always do you feel safe at home: Yes additional social history: Boyfriend- Lane Patient works at [employer] Review of Systems (Anesthesia) ROS Narrative System reviewed and no additional complaints, except as documented.
[2024-06-24 13:01] LABS: Internal QC Validated? YES +Cl - CLEAR BKGD
[2024-06-24 13:02] LABS: Pregnancy, Urine Negative Negative; Record Kit Lot#,Urine Preg HCG0000772476
[2024-06-24 13:16] LABS: Bedside Glucose 70 mg/dL (74-106)
--- NOTE | 2024-06-24 13:30 | RAD_ITS ---
STUDY: X-RAY - LUMBAR SPINE REASON FOR EXAM: Female, 28 years old. L5-S1 TRANSFORAMINAL FUSION,LEFT TECHNIQUE: 8 fluoroscopic spot view(s) of the lumbar spine were obtained. COMPARISON: June 19, 2024 FINDINGS: Posterior interbody fusion rods and pedicular screws with disc spacer at L5-S1. RAD/Lumbar Spine 2 or 3 Views IMPRESSION: Please correlate with clinical service. 55.81 seconds fluoroscopy time. Electronically Signed: Mamadou Estes MD at 0:01 EDT ,
--- NOTE | 2024-06-24 13:30 | PCM.HP.BLA ---
History and Physical Date of Admission: 06/24/24 MR#: [id number] Acct: [id number] Name: NISIH LÓPEZ Rep #: [id number] : 1995 Provider: Dr. Luis Pruett MD Age/Sex: 28/F Location: [facility] [place] [facility] [place] Status: Signed Intake Vital Signs 06/18/2413:06 Height 5 ft 7 in Intake Visit Reasons: LUMBAR SPINE Chief Complaint: Lumbar radiculopathy Is patient in pain?: Yes Pain scale (1-10): 10 Allergies amoxicillin Allergy (Mild, Verified 06/19/24 12:46) HivesPenicillins Allergy (Verified 06/19/24 12:46) Hiveshydrocodone Adverse Reaction (Verified 06/19/24 12:46) Blood pressureibuprofen Adverse Reaction (Verified 06/19/24 12:46) Rash Medications ?Medication ?Instructions ?Recorded ?Confirmed ?Type baclofen 5 mg tablet 5 mg PO DAILY 11/19/23 06/19/24 History PFSH Medical History Wears contact lenses Wears glasses Bipolar disorder Depression Anxiety Substance abuse Marijuana use Injury of back Dietary restriction Back pain Heartburn Former smoker Asthma History of IBS Surgical History History of wisdom tooth extraction Social History Smoking Status: Former smoker alcohol intake: never substance use type: does not use caffeine: Yes what type of physical activity do you participate in: walking frequency: 5-6 times per week seatbelt use: always do you feel safe at home: Yes additional social history: Boyfriend- Lane Patient works at [employer] LUMBAR SPINE Details: This documentation accurately reflects the service provided and the decisions made by me, Dr. Luis Pruett MD 06/19/24 1243. Part of today?s visit was documented by Glendy SEVILLA , acting as scribe. NISHI GE is a 28 year old F here today for ED f/u Lumbar pain. Patient states the last couple of months have been very bad. Patient has a laminectomy and discectomy 6 months ago. Patient states her pain is on the top of her glute to the bottom of her left heel. Patient has numbness and tingling only in her foot. Patient feels like she can't move her middle toes. Patient states laying down makes the pain more bearable. Patient states the only thing that helps with her pain is Morphine. Patient has tried ice and that don't help. Nishi is known to me as she underwent L5-S1 left microdiscectomy in November this year. Unfortunately did that she did not follow-up with me in the postoperative phase. Today, she says that she recovered well from her surgery in November and had complete resolution of her radicular symptoms until about 3 weeks ago when she started having recurrent radicular symptoms into the left lower extremity. These have been worsening over the last 3 weeks despite an oral Medrol Dosepak, multiple visits with pain management as well as going to the emergency room with weakness and symptoms of perianal numbness. Patient was apparently discharged from the emergency room night as it was found to be not consistent with cauda equina syndrome. She has had severe difficulty with activities of daily living and ambulating. She is unable to put weight on her left lower extremity due to severe pain. She denies bowel incontinence. She was not able to obtain an epidural injection through pain management as this was denied by her insurance. She unfortunately has a history of multiple denials by her insurance company without any reason. Ortho Exam General General: Yes distressed Neurologic: Yes alert and Yes oriented x3 Spine SPINE TESTING CERVICAL THORACIC LUMBAR Musculoskeletal Strength 0=absent - 5=normal Details: Patient is in significant distress because of severe radicular pain going down from the left lower back down the hamstrings and calf and into her toes causing severe numbness and weakness in the foot and ankle. Prior midline incision is well-healed. There is severe left paraspinal tenderness in lower lumbar spine. Neurologic evaluation of lower extremity shows grade 0 gastrosoleus on the left, grade 3 ankle dorsiflexion, all other muscle groups seem 5/5. Positive passive straight leg raise test on the left. Coding Level of Care Code Off vis,est,level 4 Diagnoses Recurrent herniation of lumbar disc M51.26 Weakness of left foot R29.898 Time Spent (min) 35 Comment Modifier 57 Assessment and Plan Assessment and Plan (1) Recurrent herniation of lumbar disc: Status: Acute (2) Weakness of left foot: Status: Acute Orders: Orders Lumbar Spine 2 or 3 Views 06/19/24 M54.9 - Dorsalgia, unspecified Plan I obtain x-rays of the lumbar spine today in the clinic. These show L5-S1 disc height loss. MRI done last night in the emergency room shows recurrent left paraspinal L5-S1 disc herniation with severe lateral recess stenosis. Postsurgical changes of L5-S1 left laminotomy. Central canal and right lateral recess seems open. I explained to her the imaging findings in detail. Although the perianal numbness symptom is a sign of impending cauda equina syndrome, patient does not have central canal stenosis on MRI, but has severe left lateral recess stenosis from the paracentral disc herniation. Patient had complete resolution of her symptoms from the initial discectomy in November and the new symptoms started only 3 weeks ago. In presence of severe weakness from nerve root compression, difficulty with weightbearing and activities of daily living, I recommend surgical decompression. Because this is a recurrent disc herniation with the L5-S1 showing severe disc height loss and Modic changes, I recommend L5-S1 decompression and fusion with transforaminal lumbar interbody fusion through minimally invasive technique. All risk benefits and alternatives were discussed in detail. The risks include but are not limited to infection, bleeding, injury to nerves and vessels, persistent or worsening weakness, nerve root injury, hardware failure, pseudoarthrosis, adjacent segment degeneration, persistent numbness and weakness, inability to walk, DVT, pulm embolism, pneumonia, atelectasis, cardiopulmonary event, CSF leak. Patient understands and agrees to proceed with surgery. Due to the weakness, I would like to schedule this on an urgent basis over the next few days hopefully after expedited insurance approval. Patient was asked to reach out to the emergency room if she develops bladder bowel incontinence or worsening pain. Patient was in agreement. Consent was signed.
[2024-06-24] MEDS: Clindamycin 900 MG/50 ML BAG 75 MG IV ×2 (13:48→23:33)
[2024-06-24] MEDS: Ropivacaine 0.5% 30 ML Vial (16:47)
--- NOTE | 2024-06-24 17:00 | OP.PCM_ITS ---
Report of Operation Date of Procedure: 06/24/24 Description of Surgical Findings:: Preoperative diagnosis: L5-S1 recurrent left disc herniation, disc degeneration with stenosis Postoperative diagnosis: Same Name of procedure: L5-S1 transforaminal lumbar interbody fusion (TLIF), minimally invasive left side approach, percutaneous pedicle screw instrumentation. . L5-S1 posterior spinal fusion and interbody fusion ? L5-S1 posterior pedicle screw instrumentation . L5-S1 insertion of cage . Local autograft . Cancellous allograft with DBX Attending Surgeon: Dr. Luis Pruett Estimated blood loss: 50 mL Anesthesia: GA Complications: None Implants: [employer] X-PAC TLIF cage, Viper prime screws Indications: Patient is a 28-year-old lady who has had a history of low back pain that radiates into left lower extremity. She has undergone left L5-S1 microdiscectomy previously and has now presented with recurrent symptoms with lower extremity weakness. X-rays and MRI revealed L5-S1 left paracentral recurrent disc herniation, disc degeneration with left lateral recess and foraminal stenosis. Patient was explained all options of treatment which included continued nonoperative treatment measures like rest physical therapy, epidural steroidal injections. Due to the worsening pain and weakness in the left foot, patient elected to undergo surgical decompression & fusion since the symptoms severely affected her quality of life. All risks and benefits associated with the procedure were explained to the patient. The risks include but are not limited to infection, bleeding, injury to nerves and vessels, persistent paresthesia, persistent pain, dural tear, need for further procedures, adjacent segment degeneration, pseudoarthrosis, hardware failure, etc. Procedure: The patient was identified in the preoperative holding suite using unique patient identifiers. Skin was marked, consent was reviewed, and all questions were answered. The patient was then brought back to the operative room. A surgical timeout was performed to make sure correct procedure was being done on the correct patient and all operative room staff were on the same page. General endotracheal anesthesia was then given to the patient. Neuromonitoring leads were applied. The patient was then turned prone onto a Klever table. The back was prepped and draped in usual fashion. IV antibiotic was given as preoperative antibiotic. A final timeout was then again done just before starting the procedure. C-arm AP view was then taken. C-arm was positioned in a way that L5 was centralized and superior endplate of L5 and was parallel to the beam. Spinous process was centered between the pedicles. Midline was marked with skin marker and lateral borders of the pedicles were also marked. Skin marker was also utilized to irish transversely across the middle of the pedicles at L5. 2 vertical incisions about 1 inch Extending below this line were taken about 1/2 inch lateral to the pedicle line. The fascia was also incised vertically approximately the same length. Finger dissection was utilized to palpate the superior articular process and facet joint of L5-S1 on the left side. Sequential tubes were docked on the facet joint and 50 mm length and 21 mm diameter tubular retractor was then placed and was attached to the arm attached to the OR table. Muscle tissue was removed with pituitaries and hemostasis was achieved with Bovie. inferior articular process of L5 and superior articular process of S1 were exposed with Bovie. Osteotome was utilized to remove a portion of the inferior articular process to expose the articular surface of S1. Some of this resected bone was used as autograft. Cari was then utilized to remove the rest of the inferior articular process and part of the lamina of L5. Superior articular process of S1 was resected with the help of a bur such that the cut was flush with the superior border of S1 pedicle. Nerve hook ball-tipped was then utilized to explore the lateral recess. Large disc fragment was removed which felt to be consistent with the MRI picture. Hemostasis was achieved with bipolar cautery. Long-handle knife was then utilized to make an annulotomy. Pituitary was utilized to remove additional loose fragments from the disc base. Blunt spreaders were utilized to enter the disc space under C-arm visualization. Curettes of various sizes and angulations were utilized to remove as much of the disc material as possible. End plates were curetted to remove all cartilage. Angled curettes were used to remove disc material from the other side underneath the central annulus. [employer] X-PAC trials were inserted into position and checked under C- arm lateral view. The disc space was then filled with cancellous bone chips mixed with DBX which were then impacted with the trials. An 10 x 25 mm lordotic tall X-PAC cage filled with bone graft was then inserted into the disc space under x-ray control. Care was taken to make sure the cage was inserted deeper to the posterior longitudinal ligament. The expandable cage was then expanded to up to approximately 13 mm anterior height with approximately 15 degrees lordosis. The cage was found to be well fixed and not easily removable. AP and lateral views showed good positioning of the cage. Depuy Viper Prime screw tower was docked onto the transverse processes at L5. This was then slowly moved medially to reach the superior articular process of L5. This was then confirmed on C-arm and then a mallet was utilized to drive the trocar and screw into the pedicle going up to the medial wall of the pedicle on AP view. This was performed both sides. C-arm lateral view confirmed both trocars to be inside vertebral body. The screws were advanced. Similar procedure was done at S1 both sides. Cannulated pedicle screws (Depuy Viper) sizes were 7 x 45 mm bilaterally at L5 and S1 levels bilaterally. C-arm AP and lateral view showed good positioning of the screws and cage. 40 mm precontoured titanium 5.5 mm lordotic yamilka on both sides was then passed through the screw extensions and reduced down to the screws with the help of Depuy Viper Prime instrumentation system. AP and lateral views of the C-arm showed good positioning of the screws and cage. Final tightening with the torque screwdriver was then completed. Cari was utilized to decorticate the right L5-S1 facet joint and bone graft was placed over this. Hemostasis was achieved with the help of Bovie and FloSeal. Closure was done in layers with 0 Vicryls for the fascia, 2-0 Vicryls for the subcutaneous tissue, and Monocryl for the skin. Dressings were applied covered with Tegaderm. The patient was then turned supine onto a hospital bed. The patient was extubated and taken to PACU in stable condition. The patient tolerated the procedure well and no complications occurred. [employer] X-PAC cage & Viper Prime minimally invasive pedicle screw instrumentation system was utilized in this case. No dural tear was identified in this case. Multimodal neuro monitoring was utilized. All potentials stayed at baseline throughout the procedure. I was present for the entirety of the case and performed the surgery myself. Surgeon: Luis Pruett hot metal mixer operator: Sally Eaton Admit VTE Documentation VTE Mechan Device Prophylaxis: SCD's Procedures Musculoskeletal [id number]: Other Procedure See Report
--- NOTE | 2024-06-24 17:24 | PCM.POST.ANE ---
Anesthesia: Postop Eval I Current Vital Signs Temperature: 97 F Pulse Rate: 69 Blood Pressure: 105/63 Respiratory Rate: 14 Pulse Ox: 96 Oxygen Delivery Method: Room Air Assessment Airway patent: Yes Spontaneous unlabored respirations: Yes Mental status: Awake and Calm nausea: No Vomiting: No Anesthesia Complication: No Fluid Hydration Crystalloid volume administer (ml): 2,000 Total IV fluid infused: 2,000 Progress Note Anesthesia document: Postop Eval 1 completed: Yes
--- NOTE | 2024-06-24 20:09 | PCM.HOSP.N ---
Hospitalist Note 28-year-old female here for recurrent left disc herniation with L5-S1 decompression and fusion with transforaminal lumbar interbody fusion with Dr. Pruett. Hospitalist consulted for medical management. Patient evaluated at bedside, reports she has some tight feeling in her back but otherwise has no physical complaints. Reports only history of anxiety for which she takes no medication and denies any substance, alcohol, tobacco use. Patient also denies any other medical problems and takes no home medications aside from the ones that she had been prescribed for her current pain prior to surgery. Patient is vitally stable and overall feeling well. Management of lumbar decompression and fusion per primary.
--- NOTE | 2024-06-24 20:18 | POSTOPAN2_ITS ---
Anesthesia Postop Eval I Sum Postop Eval Completion status Anesthesia document: Postop Eval 1 completed: Yes Anesthesia Postop Eval I Summary Anesthesia Postop Eval I Summary: Anesthesia Postop Eval I: Assessment Summary Airway patent Yes 06/24/24 17:25 [email or web address] [email or web address] Spontaneous unlabored Yes 06/24/24 17:25 [email or web address] [email or web address] respirations Mental status Awake,Calm 06/24/24 17:25 [email or web address] [email or web address] nausea No 06/24/24 17:25 COMPUTER [email or web address] Vomiting No 06/24/24 17:25 COMPUTER [email or web address] Anesthesia Postop Eval I: Fluid Summary Crystalloid volume administer 2,000 06/24/24 17:25 [email or web address] (ml) Colloids volume administered ( ml) Blood Product volume administered (ml) Total IV fluid infused 2,000 06/24/24 17:25 COMPUTER [email or web address] Anesthesia Postop Eval I: Summary Notes Anesthesia Complication No 06/24/24 17:25 COMPUTER [email or web address] Anesthesia Complication Comment: Post-operative progress note Anesthesia: Postop Eval II Evaluation Mental status: Awake and Calm Pain Level: 2 nausea: No Vomiting: No Complications Anesthesia Complication: No
--- NOTE | 2024-06-24 20:18 | PCM.POSTANE2 ---
Anesthesia Postop Eval I Sum Postop Eval Completion status Anesthesia document: Postop Eval 1 completed: Yes Anesthesia Postop Eval I Summary Anesthesia Postop Eval I Summary: Anesthesia Postop Eval I: Assessment Summary Airway patent Yes 06/24/24 17:25 COMMERCIAL INSTRUCTOR [email or web address] Spontaneous unlabored Yes 06/24/24 17:25 COMMERCIAL INSTRUCTOR [email or web address] respirations Mental status Awake,Calm 06/24/24 17:25 COMMERCIAL INSTRUCTOR [email or web address] nausea No 06/24/24 17:25 COMMERCIAL INSTRUCTOR [email or web address] Vomiting No 06/24/24 17:25 COMMERCIAL INSTRUCTOR [email or web address] Anesthesia Postop Eval I: Fluid Summary Crystalloid volume administer 2,000 06/24/24 17:25 COMMERCIAL INSTRUCTOR [email or web address] (ml) Colloids volume administered ( ml) Blood Product volume administered (ml) Total IV fluid infused 2,000 06/24/24 17:25 COMMERCIAL INSTRUCTOR [email or web address] Anesthesia Postop Eval I: Summary Notes Anesthesia Complication No 06/24/24 17:25 COMMERCIAL INSTRUCTOR [email or web address] Anesthesia Complication Comment: Post-operative progress note Anesthesia: Postop Eval II Evaluation Mental status: Awake and Calm Pain Level: 2 nausea: No Vomiting: No Complications Anesthesia Complication: No
[2024-06-24] MEDS: Methocarbamol 500 MG Tablet 1000 MG PO (20:34)
[2024-06-24] MEDS: oxyCODONE 5 MG Tablet PO (20:58)
[2024-06-24] MEDS: Ibuprofen 400 MG Tablet PO (23:23)
[2024-06-24] MEDS: Senna/Docusate Sodium 1 Tablet 2 TABLET PO (23:23)
[2024-06-25 02:40] VITALS: BP 113/67; PULSE 87; RESP 16; TEMP 36.8; O2SAT 97
[2024-06-25] MEDS: Morphine 4 MG/ML Syringe IV (04:14)
[2024-06-25] MEDS: Acetaminophen 500 MG Tablet 1000 MG PO ×2 (06:00→13:51)
[2024-06-25] MEDS: oxyCODONE 5 MG Tablet PO ×3 (06:00→13:51)
[2024-06-25] MEDS: Methocarbamol 500 MG Tablet 1000 MG PO ×2 (06:00→11:25)
[2024-06-25] MEDS: Clindamycin 900 MG/50 ML BAG 75 MG IV (06:01)
[2024-06-25] MEDS: Ibuprofen 400 MG Tablet PO ×2 (06:01→13:51)
[2024-06-25 06:51] LABS: Hematocrit 30.4 % (37-47); Hemoglobin 10.2 g/dL (12.0-15.0); Mean Corp Hgb Conc 33.6 g/dL (32-36); Mean Corpuscular Hgb 28.7 pg (27.0-32.0); Mean Corpuscular Volume 85.4 fL (81-99); Mean Platelet Vol. 8.9 fl (6.2-12.0); Platelet Count 281 K/mm3 (150-450); RBC Distribution Width CV 12.4 % (11.6-14.6); RBC Distribution Width SD 38.5 fl (35.1-43.9); Red Blood Count 3.56 M/mm3 (4.2-5.4)
[2024-06-25 07:24] LABS: Anion Gap 5 (5-15); BUN 14 mg/dL (7-18); BUN/Creat Ratio 29.9 RATIO (10-20); Calcium,Total 8.1 mg/dL (8.5-10.1); Chloride 109 mmol/L (98-107); Creatinine, Serum 0.47 mg/dL (0.55-1.02); EST Glomerular Filtration Rate 168 mL/min (>60); Est Glom Filt Rate - Afr Amer 204 mL/min (>60); Estimated Creatinine Clearance 190.17 ml/min; Glucose 157 mg/dL (74-106); Potassium 3.7 mmol/L (3.5-5.1); Sodium Level 137 mmol/L (136-145)
[2024-06-25] MEDS: Ensure Surgery 237 ML LIQUID PO (08:15)
[2024-06-25 08:44] VITALS: BP 101/50; PULSE 96; RESP 16; TEMP 36.8; O2SAT 99
[2024-06-25 08:48] VITALS: BP 101/50; PULSE 96; RESP 16; TEMP 36.8; O2SAT 99
--- NOTE | 2024-06-25 09:05 | RAD_ITS ---
INDICATION: s/p lumbar fusion -- upright AP and lat EXAMINATION/TECHNIQUE: X-RAY - XR Spine Lumbar 2 or 3 Views COMPARISON: Prior study dated: 06/19/2024 FINDINGS: VERTEBRAE: Posterior fusion hardware with disc spacer at L5-S1. Hardware is intact with appropriate alignment No fracture. Vertebral body heights are maintained. No spondylolisthesis. Preservation of the normal lumbar lordosis. No significant facet arthropathy. DISCS: Remaining disc spaces are maintained. INCLUDED ABDOMEN: Included bowel gas pattern is non-obstructive. RAD/Lumbar Spine 2 or 3 Views IMPRESSION: Posterior fusion with disc spacer at L5-S1 with appropriate alignment. Electronically Signed: Ernie Larios MD at 8:08 EDT ,
[2024-06-25] MEDS: Gabapentin 300 MG Capsule PO (09:58)
[2024-06-25] MEDS: Senna/Docusate Sodium 1 Tablet 2 TABLET PO (09:59)
[2024-06-25 11:31] VITALS: BP 112/65; PULSE 102; RESP 16; TEMP 36.7; O2SAT 100
--- NOTE | 2024-06-25 12:32 | PCM.PN.ORT ---
Subjective Subjective Seen with Dr. Pruett. Patient was resting in bed upon arrival. Says that her leg pain has gone after surgery as well as perianal numbness. She has been seen by PT and cleared, ready for discharge home. Objective Data Objective Data Vital Signs: Vital Signs Temp Pulse Resp BP Pulse Ox O2 Del Method O2 Flow Rate 98.1 F 102 H 16 112/65 100 Room Air 4 06/25/24 11:31 06/25/24 11:31 06/25/24 11:31 06/25/24 11:31 06/25/24 11:31 06/25/24 11:31 06/24/24 18:15 Oxygen Flow Rate (L/min) 4 Oxygen Delivery Method Room Air Weight: 165 lb 9.074 oz Body Mass Index (BMI) 25.9 Intake & Output: Intake and Output for Last 24 Hours 06/23/24 06/24/24 06/25/24 23:59 23:59 23:59 Intake Total 1152 / 1352 1320.5 / 1320.5 Output Total 1000 / 1000 Balance 152 / 352 1320.5 / 1320.5 Lab / Micro Data 06/25/24 06:38 06/25/24 06:38 Labs: Laboratory Results - last 24 hr 06/24/24 12:40: Urine Test Negative 06/24/24 12:52: POC Glucose 70 L 06/25/24 06:38: WBC 16.0 H, RBC 3.56 L, Hgb 10.2 L, Hct 30.4 L, MCV 85.4, MCH 28.7, MCHC 33.6, RDW Std Deviation 38.5, RDW Coeff of Raimundo 12.4, Plt Count 281, MPV 8.9, Sodium 137, Potassium 3.7, Chloride 109 H, Carbon Dioxide 23.0, Anion Gap 5, BUN 14, Creatinine 0.47 L, Estim Creat Clear Calc 190.17, Est GFR (MDRD) Af Amer 204, Est GFR (MDRD) Non-Af 168, BUN/Creatinine Ratio 29.9 H, Glucose 157 H, Calcium 8.1 L Micro: Microbiology 06/23/24 12:06 Swab (Method) Nasal Screen MRSA/MSSA - Final Radiography Diagnostic Testing: Radiology Impression Lumbar Spine X-Ray 06/24/24 13:30 IMPRESSION: Please correlate with clinical service. 55.81 seconds fluoroscopy time. Electronically Signed: Mamadou Estes MD at 0:01 EDT , Physical Exam Narrative 5x5 power in lower extremities. Tegaderm and dressings intact. Const alert and oriented x3 Assessment & Plan Assessment/Plan (1) Status post lumbar spinal fusion: PLAN: Plan She is ready to be discharged and is cleared by PT. Mentions that she has taken ibuprofen without any side effects. She will continue the ibuprofen at this time. Says that they cause canker sores. We will discharge home and she will follow up in 2 weeks at the office.
--- NOTE | 2024-06-25 13:10 | CASEMGMT ---
Addendum entered by Carmen Crowley 06/25/24 14:22: Strata: 1 Original Note: RN?CM?PHARMACIST APPRENTICE?CM?to room to meet with patient for initial transition planning/care coordination?assessment.?RN?CM?introduced self and role at [facility].? Pt voices understanding and consents to?assessment?at this time.? Pt resting in bed in no distress at this time.? Mother & sister @ bedside and pt agreeable to them being present during assessment. Pt is A/O at this time and answers all questions appropriately.?? Care providers, pharmacy, and demographics verified/updated at this time. PCP: No PCP. [facility] would like a list. Made aware a list can be provided of local PCP's in network w/insurance. Specialists: Dr Pruett-kimberly, Dr Tong-franca montes. Preferred Pharmacy: [facility] Insurance: [facility] Prescription Benefit:?yes LNOK: MotherLatasha. Sig other, Dilip Living Arrangements: Stays w/sig other, Dilip, 1/2 of the time and her mothers' 1/2 of the time. Both homes are one-story w/2 steps to navigate. Pt was indep prior to surgery. Pt's mother and Dilip can assist, as needed. Transportation:?Pt drives. Mom will take her home @ dc. DME: ? Denies using any DME and denies needs.? States therapy has provided a handout of items they recommend, such as a shoe horn, and informed her of places she can purchase these. HHC/SNF: No hx of either. Pt wishes to return home and states has no concerns with going home at time of discharge.? PLAN:??Home w/mother's and sig other's support. Bandar BIRMINGHAMN?RN?CM
--- NOTE | 2024-06-25 13:40 | CASEMGMT ---
Pt provided with local healthcare directory pamphlet as well as a printed Physician list from the [facility] website. Pt denies further needs.
== END 2024-06-25 15:01 | disposition home or self-care (01) ==
LOC: MS3 06-25 07:28 → SDC 06-25 08:44 → MS3 06-25 08:45
PROVIDERS: Anesthesiology; Student in an Organized Health Care Education/Training Program; Admitting Provider Orthopaedic Surgery Orthopaedic Surgery of the Spine; Referring Provider Orthopaedic Surgery Orthopaedic Surgery of the Spine; Visit Provider Orthopaedic Surgery Orthopaedic Surgery of the Spine
PROC: (CPT 22633; principal; 2024-06-24 14:00)
DX: M48.07 Spinal stenosis, lumbosacral region (principal); M51.17 Intervertebral disc disorders with radiculopathy, lumbosacral region; M54.16 Radiculopathy, lumbar region; Z87.891 Personal history of nicotine dependence; Z79.899 Other long term (current) drug therapy; J45.909 Unspecified asthma, uncomplicated; R29.898 Other symptoms and signs involving the musculoskeletal system
CPT/HCPCS: 22633; 22840; 20930; 20936; 22853; 00670; J2405; 36415; 72100; 76000; 80048; 81025; 82962; 83735; 85025; 85027; 86703; 86706; 86708; 86803; 86850; 86900; 86901; 87081; 94668; 96365; 96366; 96375; 97162; 97165; 99221; C1713; J7120; G0378; J3475

== ENCOUNTER 2024-06-26 20:36 | Emergency (ER) | payer MEDICAID, SELFPAY ==
[2024-06-26 20:37] VITALS: BP 115/65; PULSE 89; RESP 16; TEMP 37.1; O2SAT 97; BMI 25.0
[2024-06-26 22:36] VITALS: PULSE 72; RESP 16; O2SAT 99
--- NOTE | 2024-06-26 22:56 | EDS_ITS ---
HPI History of Present Illness Chief Complaint: Back Informant: patient Narrative Narrative: Brought in by EMS from home increasing low back pain. 2 days postop L5-S1 lumbar fusion. Radicular pain down the left side has improved. She had a microdiscectomy in November that helped briefly symptoms return before needing surgery. Denies any loss of bowel or bladder control. Denies fevers. She is on scheduled as needed oxycodone 10 mg 3 times daily. She states pain would help mainly the first 2 hours. She last took her oxycodone 7 PM prior to arrival [facility] Medical History Hypertension Wears contact lenses Wears glasses Bipolar disorder Depression Anxiety Substance abuse Marijuana use Injury of back Dietary restriction Back pain Heartburn Former smoker Asthma History of IBS Home Medications ?Medication ?Instructions ?Recorded ?Last Taken ?Type aspirin 500 mg tablet,delayed 500 mg PO DAILY PAIN 06/22/24 06/22/24 History release acetaminophen 500 mg tablet 500 mg PO Q6H #30 tabs 06/25/24 Unknown Rx methocarbamol 500 mg tablet 750 mg (1.5 x 500 mg) PO TID PRN 06/25/24 Unknown Rx spasms/pain #30 tabs oxycodone 5 mg tablet 2.5 - 5 mg (0.5 - 1 x 5 mg) PO Q6H 06/25/24 Unknown Rx PRN pain 7 days #28 tabs sennosides 8.6 mg-docusate sodium 2 tab PO BID PRN constipation #30 06/25/24 Unknown Rx 50 mg tablet (Stimulant Laxative tabs Plus) Allergy/AdvReac Type Severity Reaction Status Date / Time amoxicillin Allergy Mild Hives Verified 06/26/24 20:41 Penicillins Allergy Hives Verified 06/26/24 20:41 hydrocodone AdvReac Blood Verified 06/26/24 20:41 pressure ibuprofen AdvReac Rash Verified 06/26/24 20:41 Surgical History Hx of discectomy History of wisdom tooth extraction Social History (Updated 06/26/24 @ 20:42 by Keren Strong) household members: family Smoking Status: Former smoker alcohol intake: never substance use type: does not use caffeine: Yes what type of physical activity do you participate in: walking frequency: 5-6 times per week seatbelt use: always do you feel safe at home: Yes additional social history: Boyfriend- Lane Patient works at [email or web address] ED Constitutional Constitutional ED: Denies chills, fever(s) or sweats Eyes Eyes: Denies change in vision ENT ENT ED: Denies dysphagia or sore throat Cardiovascular Cardiovascular: Denies chest pain, leg edema, palpitations or racing heartbeat Respiratory/Chest Respiratory/Chest: Denies cough, dyspnea or dyspnea on exertion Gastrointestinal Gastrointestinal: Denies abdominal pain, diarrhea, nausea or vomiting Genitourinary Genitourinary ED: Denies dysuria, hematuria or urinary frequency Musculoskeletal Musculoskeletal: Reports back pain; Denies extremity pain or neck pain Integumentary Denies rash or wounds Neurologic Neurologic: Denies headache(s), paresthesias or weakness EXAM Physical Exam Const Vital Signs: 06/26/24 20:37 06/26/24 22:36 Temperature 98.7 F Temperature Source Oral Pulse Rate 89 72 Respiratory Rate 16 16 Blood Pressure 115/65 Blood Pressure Mean 81 Pulse Ox 97 99 Oxygen Delivery Method Room Air Positive well nourished and well developed Constitutional Narrative: Send bedside uncomfortable, nontoxic General Appearance ED: well developed HEENT Reports moist mucous membranes normocephalic and atraumatic Eyes EOMs intact bilaterally and conjunctivae normal General Eye ED: Yes normal appearance of both eyes Neck no lymphadenopathy and supple General: Negative for tenderness Chest Wall Chest: Negative for tenderness Resp normal respiratory effort and normal air movement Effort and Inspection: symmetric chest movement; Negative for respiratory distress Cardio regular rate, regular rhythm and no murmurs Peripheral Pulses: pulses 2+ throughout GI normal to inspection, nondistended, normoactive bowel sounds and non-tender Palpation: Negative for guarding or rebound tenderness present Back/Spine no CVA tenderness Back/Spine Narrative: Lower lumbar dressings clean, dry, intact. Straight leg test negative bilaterally. Extremity normal to inspection General Extremety ED: Negative for edema or tenderness General Extremity: Negative for edema Neuro oriented x3 and no sensory deficits noted Sensorium / Orientation: awake and alert Skin no rashes or lesions noted and no wounds MDM MDM MDM Narrative Medical decision making narrative: Interventions / MDM: Differential diagnosis: Postop pain, status post L5-S1 fusion Diagnosis considered but do not suspect: No cauda equina symptoms, no lumbar radicular pain symptoms. My EKG interpretation: N/A Imaging independently reviewed and interpreted by myself: N/A External documents reviewed: N/A Test considered but not ordered:N/A ED course: Due to busy department is delayed in seeing the patient after 2 hours on arrival. Upon seeing her in the room she stated she wanted to leave to go home take her pain medications. I discussed with her after getting her history that I can treat her pain since she is 2 days postop. She is having postop pain she is not having radicular symptoms no cauda equina symptoms. States pain medicines lasting 2 to 3 hours. I ordered for IM morphine to help with symptom s. 2307: I spoke with her surgeon Dr. Pruett, discussed her presentation no focal deficits no radicular symptoms. We discussed her regimen. Reviewed her discharge medications apparently she is scheduled with Tylenol and ibuprofen [id number] by him. She is written for Robaxin. He states he would like her to continue on the strict regimen and then using the oxycodone as needed which is noted to be 2 and half to 5 mg. He states the 10 mg dosing is too high. Discussed the possibility of her running out of her medications and return to the ED. He is on this weekend. 2309: After getting off the phone, nursing came to me, reported after IM injection of morphine patient got up and walked out. Unable to discuss plan of care with her to confirm her medications of her oxycodone. Re-evaluation: stable Disposition discussed with patient/family/significant other: Patient Case discussed with consulting clinician: Spine surgeon This note was generated with [employer] dictation software. It may contain incorrect words, spelling, and punctuation that were not noted in checking the note before signing. Discharge Plan Triage Chief Complaint: Back ED Provider: Arturo Guevara Dx/Rx/DC Orders Clinical Impression: Postoperative back pain, Status post lumbar spinal fusion Prescriptions: No Action aspirin 500 mg tablet,delayed release (DR/EC) 500 mg PO DAILY acetaminophen 500 mg Tablet 500 mg PO Q6H Qty: 30 0RF methocarbamol 500 mg Tablet 750 mg PO TID PRN (Reason: spasms/pain) Qty: 30 0RF sennosides-docusate sodium [Stimulant Laxative Plus] 8.6-50 mg Tablet 2 tab PO BID PRN (Reason: constipation) Qty: 30 0RF oxycodone 5 mg Tablet 2.5 - 5 mg PO Q6H PRN (Reason: pain) 7 Days Qty: 28 0RF Primary Care Provider: Care Physician,No Primary Referrals: Care Physician,No Primary [Primary Care Provider] - Print Language: Malagasy Disposition Disposition: Elopement Discharge Date/Time: 06/26/24 23:12
[2024-06-26] MEDS: morphine 10 MG/ML Syringe IM (22:59)
--- NOTE | 2024-06-26 23:08 | ED.RN ---
pt. witnessed ambulating out of department w/o getting d/c instructions or even speaking with Dr. Guevara. Will be discharged as an elopment
== END 2024-06-26 23:12 | disposition left against medical advice (07) ==
PROVIDERS: Emergency Provider Emergency Medicine; Visit Provider Emergency Medicine
DX: M54.50 Low back pain, unspecified (principal); G89.18 Other acute postprocedural pain; Z98.1 Arthrodesis status; Z87.891 Personal history of nicotine dependence
CPT/HCPCS: 96372; 99282